=== PATIENT | male | born 1970 | race Caucasian/White ===

== ENCOUNTER → 2021-06-08 14:26 | Outpatient (BNVA) | payer OTHER, SELFPAY | PROVIDERS: PCP Nurse Practitioner Family; Visit Provider Nurse Practitioner Family | DX: R06.02 Shortness of breath (principal); Z13.6 Encounter for screening for cardiovascular disorders; I10 Essential (primary) hypertension; Z79.899 Other long term (current) drug therapy; J22 Unspecified acute lower respiratory infection; K21.9 Gastro-esophageal reflux disease without esophagitis | CPT/HCPCS: 71046; 80053; 80061; 81003; 82306; 83036; 84439; 84443; 85025 ==

== ENCOUNTER → 2021-06-18 13:38 | Outpatient (BNVA) | payer OTHER, SELFPAY | PROVIDERS: PCP Nurse Practitioner Family; Visit Provider Nurse Practitioner Family | DX: R74.8 Abnormal levels of other serum enzymes (principal); K21.9 Gastro-esophageal reflux disease without esophagitis; Z13.6 Encounter for screening for cardiovascular disorders; Z79.899 Other long term (current) drug therapy; I10 Essential (primary) hypertension | CPT/HCPCS: 82728; 83516; 85651; 86160; 86162; 86235; 86255; 86376; 86705; 86706; 86709; 86803; 87340; 87806 ==

== ENCOUNTER 2021-07-03 10:55 | Outpatient (CLI) | payer OTHER, SELFPAY ==
--- NOTE | 2021-07-03 11:06 | US_ITS ---
WS: [id number] Complete ABDOMINAL ULTRASOUND HISTORY: ABNORMAL LEVELS OF OTHER SERUM ENZYMES/ABD PAIN COMPARISON: None available. Liver: 17.1 cm in length. Liver is slightly enlarged. Mild coarsened echotexture throughout the paren chyma. No discrete mass and no bile duct dilatation. Gallbladder: Slightly contracted gallbladder with mild wall thickening. Gallbladder wall measures up to 3 mm. No pericholecystic fluid. No stones identified. Pancreas: Completely obscured by bowel gas. CBD: 0.4 cm. Right kidney: 11.7 cm x 3.9 cm x 5.0 cm. No mass, cortical thickening or hydronephrosis. Left kidney: 11.2 cm x 5.2 cm x 5.6 cm. No mass, cortical thickening or hydronephrosis. Spleen: Normal size spleen with a few granulomata. Abdominal aorta and IVC are within normal limits. No ascites. US/US abdomen complete* [id number] IMPRESSION: 1. Slightly contracted gallbladder and mild wall thickening. No acute cholecys titis. No bile duct dilatation. 2. Liver is top normal size with mild hepatic steatosis. 3. Pancreas is not identified or evaluated.
== END 2021-07-03 10:56 | disposition home or self-care (01) ==
PROVIDERS: PCP Nurse Practitioner Family; Visit Provider Nurse Practitioner Family
DX: R74.8 Abnormal levels of other serum enzymes (principal); R10.9 Unspecified abdominal pain; R06.02 Shortness of breath; K76.0 Fatty (change of) liver, not elsewhere classified
CPT/HCPCS: 76700

== ENCOUNTER → 2021-07-20 10:08 | Outpatient (BNVA) | payer OTHER, SELFPAY | PROVIDERS: PCP Nurse Practitioner Family; Visit Provider Nurse Practitioner Family | DX: R74.8 Abnormal levels of other serum enzymes (principal); D75.1 Secondary polycythemia; R79.89 Other specified abnormal findings of blood chemistry | CPT/HCPCS: 82668; 82728; 83550; 83615; 84466; 85651; 86160; 86162; 86235; 86255; 86376 ==

== ENCOUNTER 2021-07-31 10:48 | Outpatient (CLI) | payer OTHER, SELFPAY ==
--- NOTE | 2021-07-31 11:00 | CT_ITS ---
WS: [id number] CTA scan of the chest. Additional two-dimensional coronal and sagittal reconstruction was performed. MIP images were also performed. 07/31/2021 Clinical Data: R04.2 - Hemoptysis Comparison: CT chest abdomen and pelvis, 07/11/2015. DLP: 1532.[address] scans at [facility] use at least one of these dose optimization techniques: automated e xposure control; mA and/or kV adjustment per patient size (includes targeted exams where dose is matc hed to clinical indication); or iterative reconstruction. Findings: The pulmonary arteries both centrally and distally show no intraluminal filling defects. No nodules, masses or effusions are seen. No pneumonia or pneumothorax is present. The heart is normal. The pulmo nary artery is normal in size. The thoracic aorta is unremarkable. The trachea bifurcates into the br onchi. There are lymph nodes in the anterior mediastinum and the middle mediastinum. The largest node is 1.2 cm. No axillary nodes are seen. The thyroid shows normal enhancement. 2Bones of the thorax ar e unremarkable. The upper abdomen demonstrates no abnormalities. The visualized liver, gallbladder, spleen, pancreas, adrenal glands and superior poles of the kidneys are not remarkable. CT/CT angio chest [id number] Impression: 1. Negative CTA of the chest with no evidence of pulmonary embolic disease. 2. Negative for acute cardiopulmonary disease.
[2021-07-31] MEDS: iohexol 350 mg/mL 100 mL Btl IV (11:48)
== END 2021-07-31 10:49 | disposition home or self-care (01) ==
PROVIDERS: PCP Nurse Practitioner Family; Visit Provider Family Medicine
DX: R04.2 Hemoptysis (principal); R05.9 Cough, unspecified; F17.210 Nicotine dependence, cigarettes, uncomplicated; R63.4 Abnormal weight loss
CPT/HCPCS: 71275; Q9967

== ENCOUNTER 2021-09-21 14:12 | Outpatient (CLI) | payer OTHER, SELFPAY ==
[2021-09-21 17:00] LABS: Basophils # 0.1 10^3/uL (0.0-0.1); Basophils % 0.8 %; Eosinophils # 0.2 10^3/uL (0.0-0.8); Hematocrit 47.1 % (42.0-52.0); Hemoglobin 16.4 g/dL (11.7-16.6); Lymphocytes # 2.9 10^3/uL (0.8-4.8); Lymphocytes % 38.9 %; Mean Corpuscular HGB Conc 34.8 g/dL (30.0-36.0); Mean Corpuscular Hemoglobin 32.9 pg (28.0-34.0); Mean Corpuscular Volume 94.6 fl (80-94); Mean Platelet Volume 11.5 fL (7.4-10.4); Monocytes # 0.7 10^3/uL (0.2-0.9); Monocytes % 8.7 %; Neutrophils # 3.68 10^3/uL (1.8-7.7); Neutrophils % 49.3 %; Nucleated Red Blood Cells % 0 %; Platelet Count 182 10^3/cmm (130-400); Red Blood Count 4.98 10^6/uL (4.1-5.3); White Blood Count 7.5 10^3/uL (4.0-10.0)
[2021-09-21 17:27] LABS: Alanine Aminotransferase 258 U/L (0-41); Albumin Level 4.4 g/dL (3.5-5.2); Alkaline Phosphatase 114 IU/L (40-130); Anion Gap 20.1 (5-19); Aspartate Amino Transferase 182 U/L (0-40); Blood Urea Nitrogen 4 mg/dL (6-20); Calcium 8.4 mg/dL (8.5-10.5); Carbon Dioxide 18 mmol/L (22-29); Chloride 106 mmol/L (98-107); Globulin 3.1 g/dL (1.3-4.6); Glomerular Filtration Rate 142.6 mL/min (90-130); Glucose 83 mg/dL (65-115); Iron 148 ug/dL (59-158); Osmolality Calculated 286 mOsm/kg (285-295); Percent Saturation 40.6 % (20-50); Potassium 4.1 mmol/L (3.5-5.1); Sodium 140 mmol/L (136-145); Total Bilirubin 0.4 mg/dL (0.15-1.2); Total Iron Binding Capacity 364 mcg/dl; Total Protein 7.5 g/dL (6.6-8.7); Unsaturated Iron Binding 216 ug/dL (112-347)
[2021-09-21 17:40] LABS: Ferritin 1221 ng/mL (30-400)
--- NOTE | 2021-09-21 19:51 | ONC CON_ITS ---
Dr. Garcia New Patient Note Patient: Brent Hernández Unit #: [id number]: 1970 Dicatated By: Pramod Garcia M.D.Date of Visit: Sep 21, 2021 Onc MED New Patient/Consult Referring Physician: Cale Perez Chief Complaint: Elevated blood count and elevated ferritin level. History of Present Illness: This is a 51-year-old man with mildly elevated hemoglobin/hematocrit levels and a significantly elevated serum ferritin. He is known to have hypertension, hyperlipidemia, and COPD. He has been going to the [facility] for primary care. He was seen there by ERNESTO lzu on 06/08/2021. His laboratory studies at that time included CBC showing hemoglobin elevated at 17.6 g with hematocrit 50.9%. The white blood cell count was normal at 9600 and the platelet count was normal 199,000. Comprehensive metabolic profile showed normal BUN and creatinine at 7 and 0.6 mg/dL. Bilirubin was normal at 0.7 mg/dL. The liver enzymes, though, were significantly elevated with SGOT 262/40 U/L and SGPT 297/41 U/L. The alkaline phosphatase was slightly elevated at 134/130 IU/L. His lipid profile showed total cholesterol elevated at 309 mg/dL with HDL 33 mg/dL and calculated LDL 239 mg/dL. Thyroid profile was normal. Additional studies on 06/18/2021 included serum ferritin which was significantly elevated 1368 ng/mL. Viral hepatitis screen was negative. He was then seen by Dr. Zamora on 07/13/2021 and his further laboratory studies on 07/20/2021 included serum iron studies which showed serum iron in the normal range at 121 mcg/dL with transferrin saturation also normal at 38.1%. The serum ferritin was significantly elevated at 1532 ng/mL. LDH was normal 164 U/L. Sed rate was normal at 6 mm/h. The erythropoietin level was in the low normal range at 7.9 mIU/mL. In the meantime, an abdominal ultrasound on 07/03/2021 showed slightly contracted gallbladder with mild wall thickening, but no evidence of acute cholecystitis and no evidence of bile duct dilatation. The liver was top normal size with mild hepatic steatosis. CT pulmonary angiogram on 07/31/2021 showed no evidence of pulmonary embolism. There was no evidence for any acute cardiopulmonary disease. Lymph nodes were noted in the anterior mediastinum in the middle mediastinum, the largest measuring 1.2 cm. The upper abdomen showed no abnormalities. He complains that he has hardly any energy. He is able to do a few chores at home. ECOG score is 1. He has not had good appetite. Somewhere around 7 to 8 months ago began having postprandial regurgitation. It has improved somewhat since then, but he has had a weight loss in the range of 35 to 40 pounds. He does not have fever or night sweats. He is not having difficulty swallowing. He has shortness of breath, and he has a smoker's cough. He has been having pain in the mid chest area. It radiates through to the back and also radiates up to his shoulders. It occurs both with activity and at rest. He reports having some acid reflux and he has been having loose stools, typically 3-4 times a day. He occasionally has red blood in the stool. He has urinary frequency and nocturia. He has joint pain in his shoulders and arms and he has pain that goes down both legs. He says his back hurts all the time. He has headaches that he sometimes has dizziness. He has numbness in his hands intermittently. Past Medical History: His medical history consists of chronic obstructive pulmonary disease, elevated liver enzymes, GERD, hyperlipidemia, and hypertension. He has a history of depression. Past Surgical History: His only surgery was a left orchiectomy for traumatic injury at age 19. Medications: Albuterol Sulfate (sensor) 1 Puff(s) (of 108 (90 base) mcg/act) Aerosol Powder, Breath Activated Inhalation q 6 hours PRN, cloNIDine HCl 1 Tablet (of 0.1 mg) Oral b.i.d., Symbicort 2 Puff(s) (of 160-4.5 mcg/act) Aerosol Inhalation PRN Allergies: Lidocaine Social History: Mr. Hernández is . 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 He has a history of smoking 2 packs of cigarettes daily for 30 years. He is a heavy drinker with estimated alcohol use of 15-20 beers per day. Family History: Father of pancreatic cancer. Mother is living at age 73. She has diabetes and coronary artery disease. One brother of a cerebral aneurysm. Four other brothers and 2 sisters are still living, but he does not know much about them. Review Of Symptoms: Constitutional - He says he has hardly any energy. He is able to do a few chores around the house. His appetite has not been good. He has had a weight loss in the range of 35 to 40 pounds. He has no fever or night sweats. ECOG score is 1, Eyes - He has had gradual decline in vision, ENMT - He has some hearing loss and tinnitus. He has sinus drainage off and on. No mouth sores. No sore throat or difficulty swallowing, Hematologic/Lymphatic - He has had some bruising. No other bleeding, Respiratory - He has shortness of breath. He has a smoker's cough. No pleuritic pain or hemoptysis, Cardiovascular - He has been having pain in his chest which radiates through to the middle of his back and also to his shoulders. It occurs both with half activity and with rest, Gastrointestinal - He has been having postprandial regurgitation, though lately it has not been as bad. He has had some acid reflux. He has loose stools, typically 3-4 times a day. He occasionally has red blood in the stool, Genitourinary (M) - No dysuria or hematuria. He has urinary frequency and nocturia. No urgency or incontinence, Musculoskeletal - He has pain in his shoulders and arms and he has pain which goes down his legs. He says his back hurts all the time, Neurologic - He has headaches and he sometimes has dizziness. He has numbness in his hands intermittently. No other focal neurologic symptoms, Psychiatric - He has some anxiety. He has a history of depression. He does not sleep well. Vital Signs: Performed on Sep 21, 2021 15:25: 5, 2, 26.49, 1.97 sq.m, 69 in, 97 %, 91 /min, 18 /min, 176/117 mm(hg) (HIGH), 99.3 F (HIGH), and 179.4 lbs (HIGH). Physical Examination: Constitutional - He appears chronically ill, Eyes - Sclerae nonicteric. Conjunctivae clear, ENMT - No lesions noted in the oral cavity, Neck - No mass or thyromegaly, Hematologic/Lymphatic - No cervical, clavicular, or axillary adenopathy, Respiratory - Lungs sound clear with diminished air movement bilaterally, Cardiovascular - Heart rhythm is regular. There is no murmur, gallop, or rub noted, Abdomen - Soft. There is significant tenderness in the right upper quadrant. Liver does not appear enlarged. The spleen is not palpable. There is no abdominal mass or ascites noted and there is no inguinal adenopathy, Back/Spine - No spine or CVA tenderness noted, Extremities - No edema. Posterior tibial pulses are palpable bilaterally, Integumentary - No rashes. No suspicious skin lesions noted, Neurologic - No focal neurologic deficits noted. Problem List: 1. Mildly elevated hemoglobin/hematocrit levels, most likely due to secondary polycythemia. 2. Elevated serum ferritin. 3. He has significantly elevated liver enzymes. 4. Postprandial vomiting with associated weight loss. 5. Hypertension. 6. Hyperlipidemia. 7. COPD. 8. GERD. Problems Addressed with this Encounter and Plan: 1. Patient with mildly elevated hemoglobin/hematocrit levels. 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 Polycythemia rubra vera at this point is not excluded, and he will need additional laboratory evaluation including a repeat CBC and a JAK2 gene mutation study. 2. He has a significantly elevated serum ferritin but with normal transferrin saturation. The cause is uncertain. It may just be elevated as an acute phase reactant in association with the transaminitis, but hemochromatosis/iron overload is definitely a possibility. As such, I will repeat a CMP and I will recheck his serum ferritin and serum iron studies along with an HFE gene analysis. He will have further evaluation as indicated. 3. He has significant transaminitis. I think this is most likely alcohol related, but iron overload also needs to be excluded. In either case, he needs to stop drinking, though he certainly does not seem very motivated to do so. 4. He has been having postprandial regurgitation and he has had associated weight loss. In addition, he has been having loose stools, and at some point he probably should have both EGD and colonoscopy. 5. He has significant hyperlipidemia. He also has hypertension and chest pain, and he appears to be at significant risk for coronary disease. Signed By: Pramod Garcia M.D. <<Signature on File>>
[2021-10-05 14:26] LABS: CALR Exon 9 Mutation NOT DETECTED (NOT DETECTED); CSF3R Exon 14/17 Mutation NOT DETECTED (NOT DETECTED); JAK2 Exon 12 Mutation NOT DETECTED (NOT DETECTED); JAK2 V617 Block Specimen ID NG; JAK2 V617 Clinical Indication NG; JAK2 V617 Mutation NOT DETECTED (NOT DETECTED); JAK2 V617 Specimen Source LAVENDER; MPL Exon 12 Mutation NOT DETECTED (NOT DETECTED)
== END 2021-09-21 14:13 | disposition home or self-care (01) ==
LOC: ONCMED 14:18
PROVIDERS: PCP Nurse Practitioner Family; Visit Provider Internal Medicine Medical Oncology
DX: D75.1 Secondary polycythemia (principal); R74.8 Abnormal levels of other serum enzymes; R11.10 Vomiting, unspecified; R63.4 Abnormal weight loss; I10 Essential (primary) hypertension; E78.5 Hyperlipidemia, unspecified; J44.9 Chronic obstructive pulmonary disease, unspecified; K21.9 Gastro-esophageal reflux disease without esophagitis; Z79.899 Other long term (current) drug therapy
CPT/HCPCS: 36415; 80053; 81256; 81270; 82728; 83540; 83550; 85025; 99205

== ENCOUNTER 2021-11-05 10:19 | Outpatient (CLI) | payer SELFPAY ==
--- NOTE | 2021-11-08 11:04 | ONC FU_ITS ---
Dr. Garcia Patient Follow-Up Note Patient: Brent Hernández Unit #: [id number]: 1970 Dicatated By: Pramod Garcia M.D.Date of Visit:Nov 05, 2021 Onc Med Follow-up/Prog Note Chief Complaint: Elevated blood count and elevated ferritin level. History of Present Illness: This is a 51-year-old man with mildly elevated hemoglobin/hematocrit levels and a significantly elevated serum ferritin. He was seen by ERNESTO Del Valle at [facility] on 06/08/2021. His laboratory studies at that time included CBC showing hemoglobin elevated at 17.6 g with hematocrit 50.9%. The white blood cell count was normal at 9600 and the platelet count was normal 199,000. Comprehensive metabolic profile showed normal BUN and creatinine at 7 and 0.6 mg/dL. Bilirubin was normal at 0.7 mg/dL. The liver enzymes, though, were significantly elevated with SGOT 262/40 U/L and SGPT 297/41 U/L. The alkaline phosphatase was slightly elevated at 134/130 IU/L. His lipid profile showed total cholesterol elevated at 309 mg/dL with HDL 33 mg/dL and calculated LDL 239 mg/dL. Thyroid profile was normal. Additional studies on 06/18/2021 included serum ferritin which was significantly elevated 1368 ng/mL. Viral hepatitis screen was negative. He was then seen by Dr. Perez on 07/13/2021 and his further laboratory studies on 07/20/2021 included serum iron studies which showed serum iron in the normal range at 121 mcg/dL with transferrin saturation also normal at 38.1%. The serum ferritin was significantly elevated at 1532 ng/mL. LDH was normal 164 U/L. Sed rate was normal at 6 mm/h. The erythropoietin level was in the low normal range at 7.9 mIU/mL. In the meantime, an abdominal ultrasound on 07/03/2021 showed slightly contracted gallbladder with mild wall thickening, but no evidence of acute cholecystitis and no evidence of bile duct dilatation. The liver was top normal size with mild hepatic steatosis. CT pulmonary angiogram on 07/31/2021 showed no evidence of pulmonary embolism. There was no evidence for any acute cardiopulmonary disease. Lymph nodes were noted in the anterior mediastinum in the middle mediastinum, the largest measuring 1.2 cm. The upper abdomen showed no abnormalities. I had seen him initially on September 21, 2021. It appeared that the elevated hemoglobin/hematocrit levels were most likely reflective of secondary polycythemia, though as a precaution I did evaluate further with a molecular profile. It was completely negative, including the JAK2 V617F and the JAK2 exon 12 mutations, among others. With his ferritin level significantly elevated, his evaluation also included an HFE gene analysis, and that was negative for the C282Y and the H63D mutations. His other medical illnesses include hypertension, hyperlipidemia, and COPD. He has a history of smoking 2 packs of cigarettes daily for 30 years. He also has had significant alcohol use, estimated 15-20 beers daily. He is seen for a follow-up visit. He says he has been feeling okay, though he has been tired a lot and he says he has been doing a lot of sleeping. He has very limited activity. ECOG score is 2. His appetite has not been good. He says he does not eat a lot. He does not have fever. He sometimes has sweating at night. He says he has been itching a lot. His blood pressure has been elevated. He has not been taking medication, mainly because he cannot afford to pay for it. His sinuses have been rough lately. He has cough which is productive of clear or sometimes green sputum. It occasionally has blood in it, but he thinks that is from his sinuses. He is short of breath. During the past week he has been having pain in the substernal area which comes and goes. He has not been having nausea. He sometimes has acid reflux. His bowels have been loose. Bladder function is pretty good, though he says his urine has been a little more dark. He has been having really bad pain in his hips and thighs. He also hurts in his shoulders and elbows and he has back pain all the time. He has had some headaches. Occasionally has dizziness. He has numbness in his hands and feet and in his right leg. He reports having frequent muscle cramping in both feet. Since my initial visit with him he has cut down his smoking to 1 pack of cigarettes daily, and he has reduced his alcohol intake to 6 beers daily. Medications: Albuterol Sulfate (sensor) 1 Puff(s) (of 108 (90 base) mcg/act) Aerosol Powder, Breath Activated Inhalation q 6 hours PRN, Budesonide-Formoterol Fumarate 1 Puff(s) (of 160-4.5 mcg/act) Aerosol Inhalation b.i.d., Lisinopril 1 Tablet (of 10 mg) Oral daily Allergies: Lidocaine Vital Signs: Performed on Nov 05, 2021 11:09 Height - 69.00 in BP - 216/133 mm(hg) (HIGH) Performed on Nov 05, 2021 11:08 Height - 69.00 in Weight - 185.4 lbs (HIGH) BSA - 2.00 sq.m BMI - 27.38 Temperature - 98.3 F (LOW) Pulse - 89 /min Respiration - 16 /min BP - 213/138 mm(hg) (HIGH) O2 Sat - 99 % Pain - 2 Fatigue - 8 Physical Examination: Constitutional - He appears chronically ill, Eyes - Sclerae nonicteric. Conjunctivae clear, ENMT - No lesions noted in the oral cavity, Hematologic/Lymphatic - No cervical, clavicular, or axillary adenopathy, Respiratory - Lungs sound clear with diminished air movement bilaterally, Cardiovascular - Heart rhythm is regular. There is no murmur, gallop, or rub noted, Abdomen - Soft. He has mild tenderness in the right upper quadrant. Liver does not appear enlarged. Spleen is not palpable. There is no abdominal mass or ascites noted and there is no inguinal adenopathy, Extremities - No edema, Neurologic - No focal neurologic deficits noted. Lab/Imaging: Test performed on Sep 21, 2021 16:30 Ferritin 1221 ng/mL Iron 148 mcg/dL Sodium 140 mmol/L Iron Binding Capacity (TIBC) 364 mcg/dl Potassium 4.1 mmol/L % Iron Saturation 40.6 % Chloride 106 mmol/L CO2 18 mmol/L UIBC 216 mcg/dL Anion Gap 20.1 BUN 4 mg/dL Creatinine 0.6 mg/dL Cr Clearance (Est) 169.5300 mL/min eGFR 142.6 mL/min Glucose 83 mg/dL Osmolality - Calculated 286 mOsm/kg Calcium 8.4 mg/dL Protein, Total 7.5 g/dL Albumin 4.4 g/dL Globulin 3.1 g/dL Bilirubin, Total 0.4 mg/dL ALT (SGPT) 258 U/L AST (SGOT) 182 U/L Alkaline Phosphatase 114 IU/L WBC 7.5 10 3/uL RBC 4.98 10 6/uL HGB 16.4 g/dL HCT 47.1 % MCV 94.6 fl MCH 32.9 pg MCHC 34.8 g/dL RDW 13.0 % Platelet Count 182 10 3/cmm MPV 11.5 fL Neutrophils 3.68 10 3/uL Lymphocytes 2.9 10 3/uL Monocytes 0.7 10 3/uL Eosinophils 0.2 10 3/uL Basophils 0.1 10 3/uL Neutrophil % 49.3 % Lymphocyte % 38.9 % Monocyte % 8.7 % Eosinophil % 2.0 % Basophils % 0.8 % NRBC % 0 % Problem List: 1. Mildly elevated hemoglobin/hematocrit levels, most likely due to secondary polycythemia. 2. Elevated serum ferritin. 3. He has significantly elevated liver enzymes. 4. Postprandial vomiting with associated weight loss. 5. Hypertension. 6. Hyperlipidemia. 7. COPD. 8. GERD. Problems Addressed with this Encounter and Plan: 1. Patient with mildly elevated hemoglobin/hematocrit levels. 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 His molecular profile for myeloproliferative disorders was negative. With his hemoglobin/hematocrit levels just mildly elevated, this can be followed expectantly. 2. He has a significantly elevated serum ferritin. This appears to be nonspecific elevation as an acute phase reactant, as he has had normal transferrin saturation and his HFE gene analysis was negative for the C282Y and the H63D mutations. The most likely underlying source would be liver disease, as he has significant transaminitis which is presumed alcohol related. He has cut down on his alcohol intake. 3. He has hypertension which is not adequately controlled due to noncompliance. He also has hyperlipidemia, which has not yet been addressed. At least for now he will be given lisinopril 10 mg daily for 90 days. I asked him to get his blood pressure checked at least once a week. 4. He has COPD and he also will be provided a budesonide-formoterol fumarate inhaler. Signed By: Pramod Garcia M.D. <<Signature on File>>
== END 2021-11-05 10:20 | disposition home or self-care (01) ==
PROVIDERS: PCP Nurse Practitioner Family; Visit Provider Internal Medicine Medical Oncology
DX: D75.1 Secondary polycythemia (principal); R79.89 Other specified abnormal findings of blood chemistry; R74.8 Abnormal levels of other serum enzymes; R11.10 Vomiting, unspecified; R63.4 Abnormal weight loss; I10 Essential (primary) hypertension; E78.5 Hyperlipidemia, unspecified; J44.9 Chronic obstructive pulmonary disease, unspecified; K21.9 Gastro-esophageal reflux disease without esophagitis; Z79.899 Other long term (current) drug therapy
CPT/HCPCS: 99214

== ENCOUNTER 2021-12-04 11:18 | Day surgery (SDC) | payer MEDICAID, SELFPAY ==
[2021-12-04] VITALS (7 sets, daily range): BP systolic 131–209; BP diastolic 94–127; PULSE 71–80; RESP 14–18; TEMP 37; O2SAT 97–100
--- NOTE | 2021-12-04 11:47 | US_ITS ---
WS: [id number] ULTRASOUND-GUIDED LIVER PARENCHYMA BIOPSY CLINICAL INFORMATION: elevated liver enzymes COMPARISON: None. FINDINGS: The procedure including risks, benefits, and complications were discussed with the patient who agreed to proceed. Using sterile technique patient was prepped and draped in the usual sterile fashion. Aft er 1% lidocaine utilizing real-time ultrasound guidance 6 18-gauge cores were obtained of the LEFT he patic lobe. No immediate complications. US/US biopsy liver [id number] IMPRESSION: 1. Uncomplicated ultrasound-guided liver parenchyma biopsy 2. Pathology is pending.
[2021-12-04] MEDS: sodium chloride 0.9% 1,000 ML 30 ML IV (12:00)
[2021-12-04 12:21] LABS: INR 0.99 (0.8-1.2)
[2021-12-04] MEDS: fentaNYL 50 mcg/mL INJ 2mL IVP (13:13)
[2021-12-04] MEDS: midazolam 1 mg/mL INJ 2 mL 2 MG IVP (13:13)
[2021-12-04] MEDS: fentaNYL 50 mcg/mL INJ 2mL 25 MCG IVP ×2 (13:22→13:28)
[2021-12-04] MEDS: midazolam 1 mg/mL INJ 2 mL IVP ×2 (13:22→13:28)
== END 2021-12-04 14:55 | disposition home or self-care (01) ==
PROVIDERS: PCP Nurse Practitioner Family; Visit Provider Radiology Neuroradiology
DX: R94.5 Abnormal results of liver function studies (principal)
CPT/HCPCS: 36415; 47000; 76942; 85610; 88307; 96367; 96374; J2250; J2400; J3010; J7030

== ENCOUNTER 2022-03-08 12:55 | Inpatient (IN) | payer MEDICAID, SELFPAY ==
[2022-03-08] VITALS (21 sets, daily range): BP systolic 135–221; BP diastolic 78–144; PULSE 70–101; RESP 9–23; TEMP 36.2; O2SAT 90–97; BMI 23.7
--- NOTE | 2022-03-08 13:09 | XR_ITS ---
WS: [id number] Exam: XR chest 1V portable [id number] Date/Time of Exam: 03/08/2022 1:15 PM Reason For Exam: chest pain Comparison 06/08/2021. Findings: The lungs are clear and fully expanded. Costophrenic angles are sharp. No infiltrates. Bronchovascula r relief appears normal. Cardiac silhouette is unremarkable. Bony elements are intact. XR/XR chest 1V portable [id number] IMPRESSION: Unremarkable chest radiograph.
--- NOTE | 2022-03-08 13:09 | ECG_ITS ---
[facility] Test Date: 2022-03-08 Pat Name: Brent Hernández Department: Room: Gender: Male Rn Infusion: : 1970 Requested By: Toi Gill Order Number: [id number] Brock MD: Sharon Noland M.D. Measurements Intervals Snyder Rate: 91 P: 70 ND: 152 QRS: 58 QRSD: 90 T: 50 QT: 353 QTc: 436 Interpretive Statements SINUS RHYTHM Compared to ECG 12/08/2015 17:37:21 No significant changes Electronically Signed On 03-08-2022 21:21:15 CDT by Sharon Noland M.D. [id number]
[2022-03-08 13:20] LABS: Basophils # 0.1 10^3/uL (0.0-0.1); Basophils % 0.9 %; Eosinophils # 0.1 10^3/uL (0.0-0.8); Eosinophils % 0.8 %; Hematocrit 48.8 % (42.0-52.0); Hemoglobin 17.3 g/dL (11.7-16.6); Lymphocytes # 2.1 10^3/uL (0.8-4.8); Lymphocytes % 23.8 %; Mean Corpuscular HGB Conc 35.5 g/dL (30.0-36.0); Mean Corpuscular Hemoglobin 32.3 pg (28.0-34.0); Mean Platelet Volume 10.9 fL (7.4-10.4); Monocytes # 0.6 10^3/uL (0.2-0.9); Monocytes % 6.8 %; Neutrophils # 5.93 10^3/uL (1.8-7.7); Neutrophils % 67.2 %; Nucleated Red Blood Cells % 0 %; Platelet Count 188 10^3/cmm (130-400); Red Blood Count 5.36 10^6/uL (4.1-5.3); Red Cell Distribution Width 13.3 % (12.1-15.1); White Blood Count 8.8 10^3/uL (4.0-10.0)
--- NOTE | 2022-03-08 13:27 | W.ED.CHESTPA ---
HPI - Chest Pain General: Chief Complaint: Chest Pain Stated Complaint: HTN Time Seen by Provider: 03/08/22 13:09 Source: patient Mode of arrival: EMS Limitations: no limitations History of Present Illness: 51-year-old male presents emergency room complaining of chest pain for the last several weeks been escalating in intensity and duration. He has had episode of chest pain while at rest today. He does admit to drinking regularly. Chest pain was relieved by nitroglycerin in route and then worsening of her arrival here follow-up. Denies any medic easy melena hematemesis cough confirms no known history of coronary artery disease he is not diabetic but he does smoke regularly. Has a history of pretension is not currently treated. MD complaint: chest pain Onset (ago): hour(s) Timing of current episode: episodic Prior episodes: Yes Onset: during rest Pain location: left chest Severity: moderate Quality: tightness, aching and heaviness Relieving factors: nitroglycerin Exacerbating factors: nothing Associated symptoms: Reports diaphoresis and dyspnea; Deny abdominal pain, fever(s), leg edema, nausea, palpitations, sense of impending doom, syncope or vomiting Treatment prior to arrival: aspirin and nitroglycerin Review of Systems Const: Reports: diaphoresis; Denies: fever(s) ENMT: Denies: throat pain, ear or mastoid pain, nasal discharge or nasal congestion Card: Reports: chest pain; Denies: palpitations, irregular heart rhythm, edema, swelling of feet/ankles or syncope Resp: Reports: dyspnea GI: Denies: abdominal pain, nausea or vomiting : Denies: flank pain, difficulty urinating, dysuria, urinary frequency or urinary urgency Skin/Breast: Denies: rash or pruritus PFSH ED PFSH: Medical History Elevated liver enzymes Essential hypertension GERD (gastroesophageal reflux disease) Hypertension screen Lower respiratory infection Medication management Shortness of Breath Surgical History H/O removal of testicle At age 20 - 21 Social History Smoking and tobacco status: current every day smoker Physical Exam Const: COMMON NORMALS: no acute distress GENERAL APPEARANCE: cooperative and comfortable ORIENTATION/CONSCIOUSNESS: Yes awake, Yes oriented to person, Yes oriented to place and Yes oriented to time HENMT: COMMON NORMALS: normocephalic, atraumatic and hearing grossly normal bilaterally HEAD & SCALP: normocephalic and atraumatic Resp: COMMON NORMALS: normal respiratory effort, No retractions, No use of accessory muscles and clear to auscultation bilaterally AUSCULTATION: clear to auscultation bilaterally Cardio: COMMON NORMALS: regular rate, regular rhythm and No murmurs present (Cardio) RATE: regular rate RHYTHM: regular rhythm GI: COMMON NORMALS: Soft to palpation and No hepatosplenomegaly present AUSCULTATION: Yes normoactive bowel sounds PALPATION: Yes Soft to palpation, No Tenderness to palpation present (GI), No Guarding due to palpation present (GI) and Yes No hepatosplenomegaly present Extremity: COMMON NORMALS: normal to inspection, capillary refill normal, no clubbing, cyanosis or edema, no calf tenderness and no pedal edema Neuro: SENSORIUM/ORIENTATION: Yes oriented to person, Yes oriented to place and Yes oriented to time Skin: COMMON NORMALS: no rashes or lesions noted GENERAL SKIN EXAM: no rashes or lesions noted Course Vital Signs: Vital signs: Vital Signs Temperature 97.1 F L 03/08/22 13:01 Pulse Rate 77 03/08/22 17:00 Respiratory Rate 18 03/08/22 17:00 Blood Pressure 146/109 03/08/22 17:00 Pulse Oximetry 94 03/08/22 17:00 MDM - Chest Pain Medical Decision Making Escalating chest pain concern for cord artery disease. Will admit and evaluate for coronary artery disease discussed with hospitalist cardiology consulted. Lab Data : 03/08/22 13:10 03/08/22 13:10 Radiology Impressions Chest X-Ray 03/08/22 13:09 IMPRESSION: Unremarkable chest radiograph. Laboratory Results WBC 8.8 10^3/uL (4.0-10.0) 03/08/22 13:10 RBC 5.36 10^6/uL (4.1-5.3) H 03/08/22 13:10 Hgb 17.3 g/dL (11.7-16.6) H 03/08/22 13:10 Hct 48.8 % (42.0-52.0) 03/08/22 13:10 MCV 91.0 fl (80-94) 03/08/22 13:10 MCH 32.3 pg (28.0-34.0) 03/08/22 13:10 MCHC 35.5 g/dL (30.0-36.0) 03/08/22 13:10 RDW 13.3 % (12.1-15.1) 03/08/22 13:10 Plt Count 188 10^3/cmm (130-400) 03/08/22 13:10 MPV 10.9 fL (7.4-10.4) H 03/08/22 13:10 Neut % (Auto) 67.2 % 03/08/22 13:10 Lymph % (Auto) 23.8 % 03/08/22 13:10 [place] % (Auto) 6.8 % 03/08/22 13:10 Eos % (Auto) 0.8 % 03/08/22 13:10 Baso % (Auto) 0.9 % 03/08/22 13:10 Neut # (Auto) 5.93 10^3/uL (1.8-7.7) 03/08/22 13:10 Lymph # (Auto) 2.1 10^3/uL (0.8-4.8) 03/08/22 13:10 [place] # (Auto) 0.6 10^3/uL (0.2-0.9) 03/08/22 13:10 Eos # (Auto) 0.1 10^3/uL (0.0-0.8) 03/08/22 13:10 Baso # (Auto) 0.1 10^3/uL (0.0-0.1) 03/08/22 13:10 Nucleated RBC % (auto) 0 % 03/08/22 13:10 Nucleated RBCs # 0.0 /100WBC 03/08/22 13:10 Sodium 139 mmol/L (136-145) 03/08/22 13:10 Potassium 4.4 mmol/L (3.5-5.1) 03/08/22 13:10 Chloride 102 mmol/L (98-107) 03/08/22 13:10 Carbon Dioxide 25 mmol/L (22-29) 03/08/22 13:10 Anion Gap 16.4 (5-19) 03/08/22 13:10 BUN 7 mg/dL (6-20) 03/08/22 13:10 Creatinine 0.7 mg/dL (0.7-1.2) 03/08/22 13:10 GFR Calculation 119.4 mL/min (90-130) 03/08/22 13:10 Glucose 109 mg/dL (65-115) 03/08/22 13:10 Estimat Average Glucose 105 03/08/22 13:10 Hemoglobin A1c 5.3 % (4.0-6.0) 03/08/22 13:10 Calculated Osmolality 287 mOsm/kg (285-295) 03/08/22 13:10 Calcium 9.8 mg/dL (8.5-10.5) 03/08/22 13:10 Total Bilirubin 0.3 mg/dL (0.15-1.2) 03/08/22 13:10 AST 66 U/L (0-40) H 03/08/22 13:10 ALT 82 U/L (0-41) H 03/08/22 13:10 Alkaline Phosphatase 136 IU/L (40-130) H 03/08/22 13:10 Troponin T Baseline 6 ng/L (0-15) 03/08/22 13:10 NT-Pro-B Natriuret Pep 106 pg/mL (0-125) 03/08/22 13:10 Total Protein 8.0 g/dL (6.6-8.7) 03/08/22 13:10 Albumin 4.9 g/dL (3.5-5.2) 03/08/22 13:10 Globulin 3.1 g/dL (1.3-4.6) 03/08/22 13:10 Triglycerides 137 mg/dL (0-150) 03/08/22 13:10 Cholesterol 301 mg/dL (0-200) H 03/08/22 13:10 LDL Cholesterol, Calc 231 mg/dL (50-129) H 03/08/22 13:10 HDL Cholesterol 43 mg/dL (60-100) L 03/08/22 13:10 LDL/HDL Ratio 5.37 RATIO (0.00-3.22) H 03/08/22 13:10 Cholesterol/HDL Ratio 7.00 mg/dL (1.0-5.00) H 03/08/22 13:10 Procalcitonin 0.06 ng/mL (0-0.5) 03/08/22 13:10 TSH 1.10 uIU/mL (0.27-4.20) 03/08/22 13:10 Discharge Plan Discharge Patient Disposition: Admitted As Inpatient Admit Provider: Blanquita Carreno Clinical Impression: Unstable angina, Alcohol use Condition: Stable Coding Level of Care Code ED Computer Discovery Teacher for Chg Fwd Exam Detailed
[2022-03-08 13:47] LABS: Alanine Aminotransferase 82 U/L (0-41); Albumin Level 4.9 g/dL (3.5-5.2); Alkaline Phosphatase 136 IU/L (40-130); Aspartate Amino Transferase 66 U/L (0-40); Blood Urea Nitrogen 7 mg/dL (6-20); Calcium 9.8 mg/dL (8.5-10.5); Carbon Dioxide 25 mmol/L (22-29); Chloride 102 mmol/L (98-107); Globulin 3.1 g/dL (1.3-4.6); Glomerular Filtration Rate 119.4 mL/min (90-130); Glucose 109 mg/dL (65-115); Osmolality Calculated 287 mOsm/kg (285-295); Sodium 139 mmol/L (136-145); Total Bilirubin 0.3 mg/dL (0.15-1.2)
[2022-03-08 13:51] LABS: Troponin(5th) Baseline 6 ng/L (0-15)
[2022-03-08] MEDS: enoxaparin 80 mg/0.8 mL Syringe SUBCUT ×2 (13:53→20:23)
[2022-03-08] MEDS: nitroglycerin drip 50 MG/250 ML PREMIX IV (13:56)
[2022-03-08 13:57] LABS: Anion Gap 16.4 (5-19); Potassium 4.4 mmol/L (3.5-5.1)
[2022-03-08] MEDS: metoprolol tartrate 1 mg/1 mL SDV 5 mL 5 MG IVP (14:28)
[2022-03-08] MEDS: morphine 4 mg/mL SDV 1 mL 2 MG IVP ×3 (14:34→23:03)
--- NOTE | 2022-03-08 15:08 | P.HP_ITS ---
Providers/Chief Complaint Primary Care Provider: ESTELLE Lynn Chief Complaint: HTN History of Present Illness Brent Hernández is a 51 year old male with past medical history of hypertension hyperlipidemia, COPD, GERD, polycythemia presented to the hospital today with chest pain. He states the chest pain is increasing in intensity and frequency. He was also hypertensive upon arriving to the ER. He received aspirin and nitro in route which relieved the pain. His pain has been going on for the last 4 to 5 months. He says he has these episodes that last few seconds to several minutes and then the pain gradually goes away. Patient's pain also radiates to the back. Both his parents had an NH during their lifetime. Mother had in her 40s and father had it in his 60s. He does drink 6 to 8 packs of alcohol a day and has been drinking for the last 30 years. He also smokes 2 packs of cigarettes for the last 30 years. patient also has elevated liver enzymes. For his polycythemia he has seen Dr. Garcia in the past which was thought to be secondary polycythemia due to underlying COPD. First troponin is 6. Patient has been given therapeutic Lovenox and started on nitro drip by ER. Patient has not have her had a cardiac work-up done before. On albuterol inhaler and Symbicort at home. Lisinopril 10 mg daily. Medications/Allergies Home Medications Medication Instructions Recorded Confirmed Last Taken Type albuterol sulfate 90 mcg/actuation 1 inh INHALATION Q6H PRN #8.5 g 07/13/21 03/08/22 Unknown Rx aerosol inhaler (Ventolin HFA) budesonide-formoterol HFA 160 2 inh INHALATION BID 30 Days #10.2 08/10/21 03/08/22 03/07/22 Rx mcg-4.5 mcg/actuation aerosol g inhaler (Symbicort) tiotropium bromide 1.25 2 puff INHALATION DAILY #4 g 08/10/21 03/08/22 03/07/22 Rx mcg/actuation mist for inhalation (Spiriva Respimat) ibuprofen 200 mg tablet 1,200 mg PO Q6H PRN 11/11/21 03/08/22 12/03/21 History lisinopril 10 mg tablet 10 mg PO DAILY 11/11/21 03/08/22 12/03/21 History Allergies Allergy/AdvReac Type Severity Reaction Status Date / Time lidocaine Allergy Intermediate ALGY-Hives Verified 03/08/22 13:29 PFSH Acute PFSH: Medical History Elevated liver enzymes Essential hypertension GERD (gastroesophageal reflux disease) Hypertension screen Lower respiratory infection Medication management Shortness of Breath Surgical History H/O removal of testicle At age 20 - 21 Social History Smoking and tobacco status: current every day smoker Vitals/I&O/Wt Last Vital Signs Temp 97.1 F L 03/08/22 13:01 Pulse 87 03/08/22 14:41 Resp 18 03/08/22 14:41 BP 182/120 03/08/22 14:41 Pulse Ox 93 03/08/22 14:41 03/08/22 03/08/22 03/08/22 06:59 14:59 22:59 Intake Total 2.55 / 2.55 1.75 / 4.30 Balance 2.55 / 2.55 1.75 / 4.30 Weight last 48 hrs Weight 77.111 kg Physical Exam Narrative: General: Alert oriented x3, patient seen sitting up in bed appearing comfortable. He is on nitro drip at this time. Does endorse having chest pain. HEENT: Normocephalic, atraumatic, EOMI, breathing normally, no acute distress. Cardio: Regular rate rhythm, normal S1-S2, no gross murmurs are evident at this time. Respiratory: Good bilateral air entry, mild rhonchi at bases, GI: Abdomen soft, nontender, nondistended, bowel sounds + Behavior: Appropriate and cooperative Extremities: Trace lower extremity edema bilaterally, no cyanosis Data : 03/09/22 04:55 03/09/22 04:55 A&P Assessment and plan (1) Alcohol withdrawal: Status: Acute (2) COPD (chronic obstructive pulmonary disease): Status: Acute (3) Acquired polycythemia: Status: Acute (4) Elevated liver enzymes: Status: Acute (5) GERD (gastroesophageal reflux disease): Status: Acute (6) Essential hypertension: Status: Acute (7) Chest pain: Status: Acute (8) Hypertensive urgency: Status: Acute Plan #Unstable angina #Hypertensive urgency #Smoker, nicotine dependence #COPD #GERD #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 Check hemoglobin A1c, lipid profile ? Offer nicotine patch ? Start aspirin, loaded with Plavix, therapeutic Lovenox ? Continue on nitro drip ? Check serial troponins ? Initial EKG did not show any ischemic changes so far. EKG was sinus rhythm ? Consult cardiology ? We will check hepatitis panel ? I believe with patient's continued chest pain patient would benefit from an angiogram instead of a stress test. Serial troponins are pending. Will discuss with cardiology for further plan of care. Full code Admit to ICU. Attestations Medical Necessity Statement*: Will need to stay in hospital for work-up and management of chest pain and hypertensive urgency. Expect to cross greater than 48-hour stay. Coding Level of Care Code Acute Cigar Head Stringer for g Fwd Diagnoses Alcohol withdrawal F10.239 COPD (chronic obstructive pulmonary disease) J44.9 Acquired polycythemia D75.1 Elevated liver enzymes R74.8 GERD (gastroesophageal reflux disease) K21.9 Essential hypertension I10 Chest pain R07.9 Hypertensive urgency I16.0
--- NOTE | 2022-03-08 15:09 | ECG_ITS ---
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 Measurements Intervals [place] Rate: 72 P: 74 GA: 146 QRS: 61 QRSD: 92 T: 62 QT: 390 QTc: 427 Interpretive Statements SINUS RHYTHM Compared to ECG 03/08/2022 13:05:58 No significant changes Electronically Signed On 03-08-2022 21:29:16 CDT by Sharon Noland M.D. [id number]
[2022-03-08 15:27] LABS: Troponin 5 2HR 6.45 ng/L (0-15)
[2022-03-08] MEDS: atorvastatin 40 mg Tablet 80 MG PO (15:39)
[2022-03-08] MEDS: pantoprazole 40 mg SDV IVP (15:40)
[2022-03-08] MEDS: clopidogrel 300 mg Tablet PO (15:40)
[2022-03-08 16:21] LABS: NT Pro B Type Natriuretic Pept 106 pg/mL (0-125); Procalcitonin 0.06 ng/mL (0-0.5)
[2022-03-08 16:22] LABS: Cholesterol 301 mg/dL (0-200); HDL Cholesterol 43 mg/dL (60-100); LDL Cholesterol Calculated 231 mg/dL (50-129); LDL HDL Ratio 5.37 RATIO (0.00-3.22); Triglycerides 137 mg/dL (0-150)
[2022-03-08 16:25] LABS: Estmated Average Glucose 105; Hemoglobin A1C 5.3 % (4.0-6.0)
[2022-03-08 16:30] LABS: Troponin 5 2HR Delta 0.45 ABS# (0-10)
--- NOTE | 2022-03-08 16:58 | USCV_ITS ---
Brent Hernández Age: 51 Gender: M : 1970 Exam Date: 03/08/2022 17:12 Ordering Phys: Blanquita Carreno MD Technologist: Obed Luevano Exam Location: [facility] [place] Indication: high blood pressure BP: 146 / 109 HR: 77 Rhythm: Sinus Technical Quality: Adequate MEASUREMENTS (Male / Female) Normal Values 2D ECHO LV Diastolic Diameter PLAX 3.4 cm 4.2 - 5.9 / 3.9 - 5.3 cm LV Systolic Diameter PLAX 2.4 cm IVS Diastolic Thickness 1.0 cm 0.6 - 1.0 / 0.6 - 0.9 cm IVS Systolic Thickness 1.2 cm LVPW Diastolic Thickness 1.2 cm 0.6 - 1.0 / 0.6 - 0.9 cm LVPW Systolic Thickness 1.2 cm LVOT Diameter 2.1 cm LV Ejection Fraction 2D Teich 47.0 % LV Ejection Fraction MOD 2C 67.5 % LV Ejection Fraction 2C AL 68.2 % LA Diameter 3.4 cm Aorta at Sinotubular Diameter 3.2 cm IVC Diameter 1.5 cm M-MODE Aortic Annulus Diameter 3.8 cm LA Ao Ratio MM 0.9 MV E Point Septal Separation 0.9 cm DOPPLER AV Peak Velocity 121.0 cm/s LVOT Peak Velocity 81.0 cm/s AV Area Cont Eq vti 1.9 cm squared AV Area Cont Eq pk 2.2 cm squared MV Area PHT 5.4 cm squared Mitral E to A Ratio 0.9 MV E' Velocity 37.5 cm/s Mitral E to MV E' Ratio 6.5 Mitral E to LV E' Lateral Ratio 5.2 Mitral E to LV E' Septal Ratio 8.6 TR Peak Velocity 136.0 cm/s TR Peak Gradient 7.4 mmHg PV Peak Velocity 94.0 cm/s FINDINGS Left Ventricle Normal left ventricular size and systolic function, EF 71 %. No regional wall motion abnormalities. Grade I/IV diastolic dysfunction (abnormal relaxation filling pattern), normal to mildly elevated filling pressures. Right Ventricle The right ventricle is normal in size and function. Right Atrium The right atrium is normal in size. Left Atrium The left atrium is normal in size. Mitral Valve No gross abnormalities noted Aortic Valve No gross abnormalities noted Tricuspid Valve No gross abnormalities noted Pulmonic Valve No gross abnormalities noted Pericardium Normal pericardium without effusion. Aorta Normal ascending aorta dimension. IVC Normal IVC dimension with <50% respiratory change of the inferior vena cava. CONCLUSIONS Normal left ventricular size and systolic function, EF 71 %. No regional wall motion abnormalities. Grade I/IV diastolic dysfunction (abnormal relaxation filling pattern), normal to mildly elevated filling pressures. No significant stenotic or regurgitant lesions Normal cardiac chamber sizes. No intracardiac masses. No pericardial effusion. No similar previous studies are available for comparison Dr Danyell Marrero MD [facility] (Electronically Signed) Final Date: 09 March 2022 05:29 S
--- NOTE | 2022-03-08 17:14 | PC.NURSE ---
Msg lft for report, nurse will call me back.
--- NOTE | 2022-03-08 18:12 | PC.NURSE ---
Attempted to call report, nurse unavailable.
--- NOTE | 2022-03-08 19:09 | ECG_ITS ---
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 Measurements Intervals [place] Rate: 70 P: 77 SD: 153 QRS: 65 QRSD: 94 T: 70 QT: 403 QTc: 436 Interpretive Statements SINUS RHYTHM Compared to ECG 03/08/2022 15:06:06 No significant changes Electronically Signed On 03-08-2022 21:28:12 CDT by Sharon Noland M.D. [id number]
[2022-03-08 20:25] LABS: Troponin 5 6HR 7.59 ng/L (0-15)
[2022-03-08 20:51] LABS: Troponin 5 6HR Delta 1.59 ng/L (0-12)
[2022-03-08] MEDS: acetaminophen 325 mg Tablet 650 MG PO (21:35)
--- NOTE | 2022-03-08 21:42 | PM.CONSULT ---
Providers/Reason For Consult Consulting Physician/Specialty*: OPAL Marrero MD/cardiology Reason for Consult*: Patient with chest pain and elevated troponin T Requesting Physician: Dr. Hernandez Attending Physician: Blanquita Carreno MD Primary Care Provider: ESTELLE Lynn History of Present Illness History of Present Illness Brnet Hernández is a 51 year old male with a history of hypertension, dyslipidemia, alcohol abuse and smoking abuse, presents with the complaints of longer present of chest pain associated with a headache and dizziness. This patient has a history of chest pain off and on for the last 7 months or so. He been having 2-3 episodes of chest pain each week, each time lasting from few seconds to several minutes. The pain then gradually goes away . So the patient never sought any medical help for the symptoms. However today the pain was more severe and lasting longer. The pain also radiated to the back. He also was having more severe headache and flushing in the face. He has a longstanding history of head ache .. He has no fever, chills or cough. No orthopnea or PND. No abdominal pain or dysuria The patient is in the epigastric region. The intensity of the pain is moderate. It radiates across the chest and also to the back. No other associated symptoms or radiation. Patient has no previous history for coronary disease, myocardial infarction or congestive heart failure. He has a strong family history of premature atherosclerotic heart disease. His mother had a heart attack in her 30s and 40s. His father had heart attack in his 60s. Many of his cousins had myocardial infarctions in their 30s and 40s. He drinks 6 to 8 pack of alcohol a da, has been doing it for the last 30 years or so He also smokes 2 pack a day, has been smoking for 30+ years. No other substance abuse. He never had any cardiac work-up. At the time of examination, the patient grades the injury of pain as 2/10. Review of Systems Narrative: CONSTITUTIONAL: No fever or chills. EYES: No blurring of vision or other visual disturbances lately. ENT: No hoarseness of voice, auditory disturbances or sore throat. CARDIOVASCULAR: As mentioned above. RESPIRATORY: Questionable history of COPD GASTROINTESTINAL: No hematemesis or melena. GENITOURINARY: No dysuria or hematuria. INTEGUMENTARY: No skin rashes or history of skin cancer. NEURO: Headache as mentioned above. PSYCHIATRIC: No history of psychosis or major depression. HEMATOLOGIC: No bleeding disorders or significant anemia. ENDOCRINE: No history of polyuria or polydipsia. MUSCULOSKELETAL: No recent joint pain or swelling. ALLERGY/IMMUNOLOGY: As mentioned above. Medications/Allergies Home Medications Medication Instructions Recorded Confirmed Last Taken Type albuterol sulfate 90 mcg/actuation 1 inh INHALATION Q6H PRN #8.5 g 07/13/21 03/08/22 Unknown Rx aerosol inhaler (Ventolin HFA) budesonide-formoterol HFA 160 2 inh INHALATION BID 30 Days #10.2 08/10/21 03/08/22 03/07/22 Rx mcg-4.5 mcg/actuation aerosol g inhaler (Symbicort) tiotropium bromide 1.25 2 puff INHALATION DAILY #4 g 08/10/21 03/08/22 03/07/22 Rx mcg/actuation mist for inhalation (Spiriva Respimat) ibuprofen 200 mg tablet 1,200 mg PO Q6H PRN 11/11/21 03/08/22 12/03/21 History lisinopril 10 mg tablet 10 mg PO DAILY 11/11/21 03/08/22 12/03/21 History Allergies Allergy/AdvReac Type Severity Reaction Status Date / Time lidocaine Allergy Intermediate ALGY-Hives Verified 03/08/22 13:29 Current Medications Generic Name Dose Route Start Last Admin Trade Name Freq PRN Reason Stop Dose Admin Enoxaparin Sodium 80 mg 03/08/22 20:00 03/08/22 20:23 Enoxaparin 80 Mg/0.8 Ml Syringe SUBCUT 80 mg Q12H KRYSTAL Administration Nitroglycerin/Dextrose 50 mg in 250 mls @ 0 mls/hr 03/08/22 13:45 03/08/22 15:11 Nitroglycerin Drip IV 45 mcg/min .Q0M KRYSTAL 13.5 mls/hr Titration Protocol Per Protocol Morphine Sulfate 2 mg 03/08/22 15:13 03/08/22 18:45 Morphine 4 Mg/Ml Sdv 1 Ml IVP 2 mg Q4H PRN Administration SEVERE PAIN Pantoprazole Sodium 40 mg 03/08/22 15:45 03/08/22 15:40 Pantoprazole 40 Mg Sdv IVP 40 mg Q24H KRYSTAL Administration PFSH Acute PFSH: Medical History Elevated liver enzymes Essential hypertension GERD (gastroesophageal reflux disease) Hypertension screen Lower respiratory infection Medication management Shortness of Breath Surgical History H/O removal of testicle At age 20 - 21 Social History Smoking and tobacco status: current every day smoker Vitals/I&O/Wt Last Vital Signs Temp 97.1 F L 03/08/22 13:01 Pulse 79 03/08/22 20:57 Resp 18 03/08/22 19:10 BP 135/78 03/08/22 19:10 Pulse Ox 97 03/08/22 20:57 03/08/22 03/08/22 03/08/22 06:59 14:59 22:59 Intake Total 2.55 / 2.55 3.15 / 5.70 Balance 2.55 / 2.55 3.15 / 5.70 Weight last 48 hrs Weight 170 lb Physical Exam Narrative: GENERAL: The patient is alert and oriented times three. Not in any acute distress. HEENT: No significant pallor, icterus or lymphadenopathy. The pupils are reactant to light and symmetrical Oral cavity: There are no mucous membrane lesions. Funduscopic examination: The fundus is not visualized NECK: Trachea appears to be central. No masses noted. No JVD or thyromegaly appreciated. No carotid bruit. RESPIRATORY: Chest is symmetrical. No intercostals muscle retraction or any accessory muscle activation. There is no chest wall tenderness. Breath sounds are heard bilaterally. No rales or rhonchi heard. No evidence of any consolidation. BREASTS: Deferred. HEART: The PMI is in the 5th left intercostals space just inside the midclavicular line. No palpable precordial events. S1 and S2 are normal. No S3 or S4 heard. No pericardial rub or any click heard. ABDOMEN: No vessel pulsations or distention. No tenderness. No organomegaly appreciated. No abdominal bruit. Bowel sounds are normally heard. : Deferred. RECTAL: Deferred. LYMPHATIC: No lymphadenopathy noted in the neck or groin. EXTREMITIES: No edema or cyanosis. No clubbing. The pulses are symmetrical bilaterally. The radial, femoral, dorsalis pedis and the posterior tibial pulses are palpated and found to be in good volume and amplitude. MUSCULOSKELETAL: No acute joint deformities or swelling SKIN: There are no significant scars or skin rash noted. NEUROPSYCHIATRIC: The patient is alert and oriented x3. Appears to be in a good mood. The higher functions are grossly within normal limits. No tremors or rigidity noted. Data : 03/08/22 13:10 03/08/22 13:10 Other Labs: Laboratory Last Values WBC 8.8 10^3/uL (4.0-10.0) 03/08/22 13:10 RBC 5.36 10^6/uL (4.1-5.3) H 03/08/22 13:10 Hgb 17.3 g/dL (11.7-16.6) H 03/08/22 13:10 Hct 48.8 % (42.0-52.0) 03/08/22 13:10 MCV 91.0 fl (80-94) 03/08/22 13:10 MCH 32.3 pg (28.0-34.0) 03/08/22 13:10 MCHC 35.5 g/dL (30.0-36.0) 03/08/22 13:10 RDW 13.3 % (12.1-15.1) 03/08/22 13:10 Plt Count 188 10^3/cmm (130-400) 03/08/22 13:10 MPV 10.9 fL (7.4-10.4) H 03/08/22 13:10 Neut % (Auto) 67.2 % 03/08/22 13:10 Lymph % (Auto) 23.8 % 03/08/22 13:10 [place] % (Auto) 6.8 % 03/08/22 13:10 Eos % (Auto) 0.8 % 03/08/22 13:10 Baso % (Auto) 0.9 % 03/08/22 13:10 Neut # (Auto) 5.93 10^3/uL (1.8-7.7) 03/08/22 13:10 Lymph # (Auto) 2.1 10^3/uL (0.8-4.8) 03/08/22 13:10 [place] # (Auto) 0.6 10^3/uL (0.2-0.9) 03/08/22 13:10 Eos # (Auto) 0.1 10^3/uL (0.0-0.8) 03/08/22 13:10 Baso # (Auto) 0.1 10^3/uL (0.0-0.1) 03/08/22 13:10 Nucleated RBC % (auto) 0 % 03/08/22 13:10 Nucleated RBCs # 0.0 /100WBC 03/08/22 13:10 Sodium 139 mmol/L (136-145) 03/08/22 13:10 Potassium 4.4 mmol/L (3.5-5.1) 03/08/22 13:10 Chloride 102 mmol/L (98-107) 03/08/22 13:10 Carbon Dioxide 25 mmol/L (22-29) 03/08/22 13:10 Anion Gap 16.4 (5-19) 03/08/22 13:10 BUN 7 mg/dL (6-20) 03/08/22 13:10 Creatinine 0.7 mg/dL (0.7-1.2) 03/08/22 13:10 GFR Calculation 119.4 mL/min (90-130) 03/08/22 13:10 Glucose 109 mg/dL (65-115) 03/08/22 13:10 Estimat Average Glucose 105 03/08/22 13:10 Hemoglobin A1c 5.3 % (4.0-6.0) 03/08/22 13:10 Calculated Osmolality 287 mOsm/kg (285-295) 03/08/22 13:10 Calcium 9.8 mg/dL (8.5-10.5) 03/08/22 13:10 Total Bilirubin 0.3 mg/dL (0.15-1.2) 03/08/22 13:10 AST 66 U/L (0-40) H 03/08/22 13:10 ALT 82 U/L (0-41) H 03/08/22 13:10 Alkaline Phosphatase 136 IU/L (40-130) H 03/08/22 13:10 Troponin T Baseline 6 ng/L (0-15) 03/08/22 13:10 Troponin T 120 Minute 6.45 ng/L (0-15) 03/08/22 14:58 Delta Troponin T 0.45 ABS# (0-10) 03/08/22 14:58 Troponin T Hi Sens 6Hr 7.59 ng/L (0-15) 03/08/22 19:56 Troponin T Hi Sens 6Hr Delta 1.59 ng/L (0-12) 03/08/22 19:56 NT-Pro-B Natriuret Pep 106 pg/mL (0-125) 03/08/22 13:10 Total Protein 8.0 g/dL (6.6-8.7) 03/08/22 13:10 Albumin 4.9 g/dL (3.5-5.2) 03/08/22 13:10 Globulin 3.1 g/dL (1.3-4.6) 03/08/22 13:10 Triglycerides 137 mg/dL (0-150) 03/08/22 13:10 Cholesterol 301 mg/dL (0-200) H 03/08/22 13:10 LDL Cholesterol, Calc 231 mg/dL (50-129) H 03/08/22 13:10 HDL Cholesterol 43 mg/dL (60-100) L 03/08/22 13:10 LDL/HDL Ratio 5.37 RATIO (0.00-3.22) H 03/08/22 13:10 Cholesterol/HDL Ratio 7.00 mg/dL (1.0-5.00) H 03/08/22 13:10 Procalcitonin 0.06 ng/mL (0-0.5) 03/08/22 13:10 TSH 1.10 uIU/mL (0.27-4.20) 03/08/22 13:10 EKG 1: My Interpretation: The EKG from 03/08/2022 revealed a normal sinus rhythm with a normal ST Ts. Normal GA and QRS duration. EKG computer-generated impression: Chest X-Ray 03/08/22 13:09 IMPRESSION: Unremarkable chest radiograph. A&P Assessment and plan (1) Chest pain: Patient has been somewhat atypical. No evidence of any myocardial injury so far. The EKG does not show any acute ischemic changes. However in view of his risk factors, possibility of underlying coronary artery disease causing the symptoms cannot be excluded. It would be appropriate to do serial enzymes and EKGs. Once the myocardial infarction is ruled out, we may go ahead and do a Myocardial perfusion imaging to further evaluate his coronary status and decide on further management. Status: Acute (2) Hypertensive urgency: Patient's blood pressure seems to be slowly getting under control. Her blood pressure is still stage II. We will optimize antihypertensive medication. Status: Acute (3) Alcohol abuse: Patient is strongly advised to quit his drinking Status: Acute (4) Smoking addiction: Patient is strongly advised to quit smoking. Cardiovascular implications were discussed. Status: Acute (5) Dyslipidemia: Consider starting the patient on a statin drug, when the liver enzymes are trending downwards Status: Acute Plan The other problems are Erythrocytosis-possibly from smoking COPD GERD Elevated liver enzymes After reviewing the above test results and also based on the patient's clinical progress, further recommendations will be made. Thank you for the opportunity to evaluate this patient and make these recommendations. Consult Attestations Medical Necessity Statement: Patient requires continued hospital stay for close monitoring and further management Coding Level of Care Code Acute Correctional Nurse for [facility] Fwd History Detailed Exam Detailed Medical Decision Making High Complexity Diagnoses Chest pain R07.9 Hypertensive urgency I16.0 Alcohol abuse F10.10 Smoking addiction F17.200 Dyslipidemia E78.5
[2022-03-09] VITALS (15 sets, daily range): BP systolic 129–196; BP diastolic 85–120; PULSE 68–99; RESP 12–23; TEMP 36.5–37.1; O2SAT 93–96
--- NOTE | 2022-03-09 00:35 | ECG_ITS ---
[facility] Test Date: 2022-03-09 Pat Name: Brent Hernández Department: Room: 276 Gender: Male Safety Assistant: Nadine Bell : 1970 Requested By: Danyell Marrero Order Number: [id number] Brock MD: Danyell Marrero M.D. Interpretive Statements NAME OF STUDY: LEXISCAN SESTAMIBI STRESS TEST INDICATION: Cp, PROCEDURE: At the baseline, the EKG revealed normal sinus rhythm with a normal ST Ts. The baseline blood pressure was 158/94 mm Hg with a heart rate of 80/min Lexiscan was infused over a period of 20 seconds. A total of 0.4 milligrams of Lexiscan was infused. The stress phase was continued for a total of 5 minutes. Heart rate at the end of the stress phase was 104 with a blood pressure 150/89. The EKG at the peak infusion revealed no significant changes. Sestamibi was injected 20 seconds after the Lexiscan infusion. Blood pressure at the end of the recovery phase was 167/89 with a heart rate of 98 per minute. CONCLUSION: 1. No significant EKG changes with the LexiScan infusion 2. No LexiScan induced chest pain or cardiac arrhythmia 3. Normal blood pressure and heart rate response 4. Sestamibi/sestamibi perfusion scan pending; see separate report. Electronically Signed On 03-09-2022 14:09:08 CDT by Danyell Marrero M.D. [id number]
--- NOTE | 2022-03-09 00:36 | NMCV_ITS ---
NM gris perf SPECT r/s* [id number] Brent Hernández Age: 51 Gender: M : 1970 Exam Date: 03/09/2022 07:47 Ordering Phys: Danyell Marrero MD ([email or web address]) Technologist: DA Multani Exam Location: [facility] Indications: CHEST PAIN STRESS TEST [facility] IMAGE PROTOCOL Rest/Stress 1 Lexiscan Day Radiopharmaceutical Dose (mCi) Administration Site Administered by Rest: Tc-99m 10.9 IV DA Multani Sestamibi Stress:Tc-99m 32.8 IV DA Multani Sestamibi Rest: 09-Mar-2022 60 Discovery 630 Stress: 09-Mar-2022 30 Discovery 630 0.4mg Lexiscan. Images obtained in supine and prone position. SPECT RESULTS Technical Quality: Excellent Raw Data Analysis: Normal Image Corrections: No attenuation or motion correction applied Summed Stress Score: 0 Summed Rest Score: 5 Summed Difference Score: 0 PERFUSION FINDINGS Moderate area of slightly decreased tracer uptake was noted in the inferior, inferoseptal and anteroseptal regions. No significant reversibility was noted in these regions. FUNCTIONAL RESULTS (calculated via Gated SPECT) Stress Image LV EF (%): 53 Stress EDV (mL):96 TID: 1.18 Stress ESV (mL):45 FUNCTIONAL FINDINGS: Segmental wall motion analysis revealing no gross wall motion normalities. IMPRESSIONS 1. Myocardial perfusion imaging revealing areas of persistent decreased tracer uptake in the inferior, inferoseptal and anteroseptal regions, suggestive of myocardial scarring versus attenuation artifacts. 2. Normal LV ejection fraction 53%. 3. Segmental wall motion analysis revealing no gross wall motion abnormalities. 4. LV volume upper limit of normal 5. Elevated transient ischemic dilatation ratio, may suggest endocardial ischemia. Clinical correlation is recommended. No similar previous studies are available for comparison Dr Danyell Marrero MD FAC (Electronically Signed) Final Date: 09 March 2022 13:34 S
[2022-03-09] MEDS: morphine 4 mg/mL SDV 1 mL 2 MG IVP (03:11)
[2022-03-09 05:09] LABS: Basophils # 0.1 10^3/uL (0.0-0.1); Basophils % 0.8 %; Eosinophils # 0.2 10^3/uL (0.0-0.8); Eosinophils % 1.9 %; Hematocrit 40.1 % (42.0-52.0); Hemoglobin 14.4 g/dL (11.7-16.6); Lymphocytes # 3.3 10^3/uL (0.8-4.8); Lymphocytes % 35.7 %; Mean Corpuscular HGB Conc 35.9 g/dL (30.0-36.0); Mean Corpuscular Hemoglobin 32.2 pg (28.0-34.0); Mean Corpuscular Volume 89.7 fl (80-94); Mean Platelet Volume 11.2 fL (7.4-10.4); Monocytes # 0.7 10^3/uL (0.2-0.9); Monocytes % 7.2 %; Neutrophils # 5.04 10^3/uL (1.8-7.7); Neutrophils % 54.2 %; Nucleated Red Blood Cells % 0 %; Platelet Count 149 10^3/cmm (130-400); Red Blood Count 4.47 10^6/uL (4.1-5.3); Red Cell Distribution Width 13.1 % (12.1-15.1); White Blood Count 9.3 10^3/uL (4.0-10.0)
[2022-03-09 05:34] LABS: Magnesium 1.9 mg/dL (1.7-2.3); Phosphorus 4.7 mg/dL (2.5-4.5)
[2022-03-09 05:55] LABS: Alanine Aminotransferase 57 U/L (0-41); Albumin Level 3.8 g/dL (3.5-5.2); Alkaline Phosphatase 84 IU/L (40-130); Anion Gap 15.8 (5-19); Aspartate Amino Transferase 42 U/L (0-40); Blood Urea Nitrogen 10 mg/dL (6-20); Calcium 9.1 mg/dL (8.5-10.5); Carbon Dioxide 24 mmol/L (22-29); Chloride 101 mmol/L (98-107); Globulin 2.6 g/dL (1.3-4.6); Glomerular Filtration Rate 102.3 mL/min (90-130); Glucose 92 mg/dL (65-115); Osmolality Calculated 283 mOsm/kg (285-295); Potassium 3.8 mmol/L (3.5-5.1); Sodium 137 mmol/L (136-145); Total Bilirubin 0.5 mg/dL (0.15-1.2); Total Protein 6.4 g/dL (6.6-8.7)
--- NOTE | 2022-03-09 07:50 | PC.NURSE ---
to [facility] for a stress test.
[2022-03-09] MEDS: regadenoson 0.4 Mg/5 ml Syringe IVP (08:50)
--- NOTE | 2022-03-09 08:56 | PC.NURSE ---
in [facility] dr truong was called about nitro drip, replied to hold drip for now. if pt complains again of chest pain to restart drip. stop time till 0804
--- NOTE | 2022-03-09 10:12 | CT_ITS ---
WS: [id number] CTA THORACIC TECHNIQUE: Contrast enhanced CTA of the thoracic aorta with coronal and sagittal reformatted images a nd maximum intensity projection (MIP) images. CLINICAL INFORMATION: check for aortic disection COMPARISON: CTa July 31, 2021 DLP: 1045.[address] scans at [facility] use at least one of these dose optimization techniques: automated e xposure control; mA and/or kV adjustment per patient size (includes targeted exams where dose is matc hed to clinical indication); or iterative reconstruction. FINDINGS: Normal caliber thoracic aorta. No evidence of Aortic dissection. No evidence of intramural hematoma. Normal caliber descending thoracic aorta. Visualized upper abdominal aorta appears normal. Normal joana iac and SMA. Proximal main pulmonary arteries appear normal. No mediastinal or hilar lymphadenopathy. Adrenal glands are normal. Small esophageal hiatal hernia. B oth lungs are well aerated. No acute pulmonary infiltrates. No focal pneumonia or pleural fluid. Calc ified granuloma RIGHT lower lobe. Slight subsegmental atelectasis RIGHT lower lobe. No axillary lymph adenopathy. CT/CT angio chest 93545 IMPRESSION: 1. Normal caliber thoracic aorta. No evidence of aortic dissection. Normal lynn iber descending thoracic aorta. 2. No acute pulmonary infiltrates. No focal pneumonia or pleural fluid. 3. No mediastinal or hilar lymphadenopathy. 4. No acute chest findings.
[2022-03-09] MEDS: aspirin 81 mg EC Tablet PO (10:28)
[2022-03-09] MEDS: enoxaparin 80 mg/0.8 mL Syringe SUBCUT ×2 (10:28→20:44)
[2022-03-09] MEDS: lisinopril 20 mg Tablet 40 MG PO (10:52)
[2022-03-09] MEDS: nitroglycerin drip 50 MG/250 ML PREMIX IV (11:08)
[2022-03-09] MEDS: iohexol 350 mg/mL 100 mL Btl IV (11:15)
[2022-03-09 11:16] LABS: Lipase 13 U/L (13-60)
--- NOTE | 2022-03-09 14:25 | PM.PN ---
Subjective Subjective: Seen this morning. Patient was seen after his stress test. He stated he did have some chest pain during his stress test and also having a little bit of pain now 2 out of 10 rating to the back. He says it comes and goes. He is not really chest pain-free yet. Patient's blood pressure still high. Nitro drip was turned off. Vitals/I&O/Wt Last Vital Signs Temp 97.7 F 03/09/22 11:31 Pulse 81 03/09/22 13:30 Resp 23 H 03/09/22 13:30 BP 153/85 03/09/22 13:30 Pulse Ox 95 03/09/22 11:31 03/08/22 03/09/22 03/09/22 22:59 06:59 14:59 Intake Total 301.425 / 303.975 477.775 / 781.750 575.850 / 575.850 Output Total 650 / 650 400 / 400 Balance 301.425 / 303.975 -172.225 / 131.750 175.850 / 175.850 Weight last 48 hrs Weight 77.111 kg Physical Exam Narrative: General: Alert oriented x3, patient seen sitting up in bed appearing comfortable.? Still complaining of chest pain radiating to the back. HEENT: Normocephalic, atraumatic, EOMI, breathing normally, no acute distress. Cardio: Regular rate rhythm, normal S1-S2, no gross murmurs are evident at this time. Respiratory: Good bilateral air entry, mild rhonchi at bases, GI: Abdomen soft, nontender, nondistended, bowel sounds + Behavior: Appropriate and cooperative Extremities: Trace lower extremity edema bilaterally, no cyanosis Data : 03/09/22 04:55 03/09/22 04:55 A&P Assessment and plan (1) Dyslipidemia: Status: Acute (2) Smoking addiction: Status: Acute (3) Alcohol abuse: Status: Acute (4) Unstable angina: Status: Acute (5) Alcohol use: Status: Acute (6) Hypertensive urgency: Status: Acute (7) Chest pain: Status: Acute (8) Alcohol withdrawal: Status: Acute (9) COPD (chronic obstructive pulmonary disease): Status: Acute (10) GERD (gastroesophageal reflux disease): Status: Acute (11) Essential hypertension: Status: Acute (12) Shortness of Breath: Status: Acute Plan #Unstable angina #Hypertensive urgency #Smoker, nicotine dependence #COPD #GERD #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 Hemoglobin A1c 5.3. Lipid profile very abnormal. Cholesterol 301, LDL 231, HDL 43. ? Offer nicotine patch ? Start aspirin, loaded with Plavix, therapeutic Lovenox ? Continue on nitro drip. Add lisinopril 40 daily. Wean off nitro drip as able. His blood pressure was 180/125 this morning. ? Troponins negative. ? Initial EKG did not show any ischemic changes so far. ? Consult cardiology ? We will check hepatitis panel. Pending ? Patient went for stress test today. Result is pending. We will optimize his blood pressure and wean off nitro drip as able. We will gradually lower his blood pressure. ? CTA chest ruled out aortic dissection. Lipase 13. Ruled out pancreatitis. Full code Admit to ICU. Attestations Medical Necessity Statement*: Patient has hypertensive urgency. He also has unstable angina. He will need to stay in the hospital for another 24 to 48 hours to get optimal blood pressure control. He may need further cardiac work-up. Defer that to cardiology. Coding Level of Care Code Acute Information Technology Assistant for g Fwd Diagnoses Dyslipidemia E78.5 Smoking addiction F17.200 Alcohol abuse F10.10 Unstable angina I20.0 Alcohol use Z72.89 Hypertensive urgency I16.0 Chest pain R07.9 Alcohol withdrawal F10.239 COPD (chronic obstructive pulmonary disease) J44.9 GERD (gastroesophageal reflux disease) K21.9 Essential hypertension I10 Shortness of Breath R06.02
--- NOTE | 2022-03-09 16:48 | PM.PN ---
Subjective Subjective: Patient had a Myocardial perfusion imaging today. He was found to have elevated transient ischemic dilatation ratio. He also was found to have areas of fixed defect in the inferior, inferoseptal and anteroseptal regions. He continues to have chest pain. We tried to stop his IV nitro. Apparently the chest pain started coming back. For that reason, he was put back on the IV nitro. Medications: Medication Review Details: Current Medications Aminophylline (Aminophylline 25 Mg/Ml Sdv 10 Ml) 25 mg IVP Q2M PRN PRN Reason: see dose instructions Stop: 03/10/22 07:26 Aspirin (Aspirin 81 Mg Ec Tablet) 81 mg PO DAILY [facility] Last Admin: 03/09/22 10:28 Dose: 81 mg Documented by: Diphenhydramine HCl (Diphenhydramine 50 Mg Capsule) 50 mg PO ONCE ONE Stop: 03/09/22 16:45 Enoxaparin Sodium (Enoxaparin 80 Mg/0.8 Ml Syringe) 80 mg SUBCUT Q12H [facility] Last Admin: 03/09/22 10:28 Dose: 80 mg Documented by: Sodium Chloride (Sodium Chloride 0.9%) 1,000 mls @ 50 mls/hr IV .Q20H ONE Stop: 03/10/22 12:43 Lisinopril (Lisinopril 20 Mg Tablet) 40 mg PO DAILY [facility] Last Admin: 03/09/22 10:52 Dose: 40 mg Documented by: Morphine Sulfate (Morphine 4 Mg/Ml Sdv 1 Ml) 2 mg IVP Q4H PRN PRN Reason: SEVERE PAIN Last Admin: 03/09/22 03:11 Dose: 2 mg Documented by: Nitroglycerin (Nitroglycerin 0.4 Mg Sublingual Tablet) 0.4 mg SUBLINGUAL Q5M PRN PRN Reason: CHEST PAIN Stop: 03/10/22 07:26 Ondansetron HCl (Ondansetron 2 Mg/Ml Sdv 2 Ml) 4 mg IVP Q8H PRN PRN Reason: vomiting, or N/V if npo Ondansetron HCl (Ondansetron 2 Mg/Ml Sdv 2 Ml) 4 mg IVP Q2M PRN PRN Reason: NAUSEA Pantoprazole Sodium (Pantoprazole 40 Mg Sdv) 40 mg IVP Q24H [facility] Last Admin: 03/08/22 15:40 Dose: 40 mg Documented by: Vitals/I&O/Wt Last Vital Signs Temp 98.1 F 03/09/22 15:46 Pulse 75 03/09/22 15:46 Resp 14 03/09/22 15:46 BP 129/94 03/09/22 15:46 Pulse Ox 93 03/09/22 15:46 03/09/22 03/09/22 03/09/22 06:59 14:59 22:59 Intake Total 477.775 / 781.750 595.950 / 595.950 240.3 / 836.250 Output Total 650 / 650 400 / 400 580 / 980 Balance -172.225 / 131.750 195.950 / 195.950 -339.7 / -143.750 Weight last 48 hrs Weight 170 lb Physical Exam Narrative: GENERAL: The patient is alert and oriented times three. Not in any acute distress. HEENT: No significant pallor, icterus or lymphadenopathy.Oral cavity: There are no mucous membrane lesions. NECK: Trachea appears to be central. No masses noted. No JVD or thyromegaly appreciated. RESPIRATORY: Chest is symmetrical. No intercostals muscle retraction or any accessory muscle activation. There is no chest wall tenderness. Breath sounds are heard bilaterally. No rales or rhonchi heard. No evidence of any consolidation. BREASTS: Deferred. HEART: The heart sounds are normal. No S3 or S4. No significant murmurs. No pericardial rub ABDOMEN: No vessel pulsations or distention. No tenderness. No organomegaly appreciated. Bowel sounds are normally heard. : Deferred. RECTAL: Deferred. LYMPHATIC: No lymphadenopathy noted in the neck. EXTREMITIES: No edema or cyanosis. No clubbing. MUSCULOSKELETAL: No acute joint deformities or swelling SKIN: There are no significant rashes or ecchymosis NEUROPSYCHIATRIC: The patient is alert and oriented x3. Appears to be in a good mood. No tremors or rigidity noted. Data : 03/10/22 02:50 03/10/22 02:50 Other Labs: Laboratory Last Values WBC 9.3 10^3/uL (4.0-10.0) 03/09/22 04:55 RBC 4.47 10^6/uL (4.1-5.3) 03/09/22 04:55 Hgb 14.4 g/dL (11.7-16.6) 03/09/22 04:55 Hct 40.1 % (42.0-52.0) L 03/09/22 04:55 MCV 89.7 fl (80-94) 03/09/22 04:55 MCH 32.2 pg (28.0-34.0) 03/09/22 04:55 MCHC 35.9 g/dL (30.0-36.0) 03/09/22 04:55 RDW 13.1 % (12.1-15.1) 03/09/22 04:55 Plt Count 149 10^3/cmm (130-400) 03/09/22 04:55 MPV 11.2 fL (7.4-10.4) H 03/09/22 04:55 Neut % (Auto) 54.2 % 03/09/22 04:55 Lymph % (Auto) 35.7 % 03/09/22 04:55 Tripp % (Auto) 7.2 % 03/09/22 04:55 Eos % (Auto) 1.9 % 03/09/22 04:55 Baso % (Auto) 0.8 % 03/09/22 04:55 Neut # (Auto) 5.04 10^3/uL (1.8-7.7) 03/09/22 04:55 Lymph # (Auto) 3.3 10^3/uL (0.8-4.8) 03/09/22 04:55 Tripp # (Auto) 0.7 10^3/uL (0.2-0.9) 03/09/22 04:55 Eos # (Auto) 0.2 10^3/uL (0.0-0.8) 03/09/22 04:55 Baso # (Auto) 0.1 10^3/uL (0.0-0.1) 03/09/22 04:55 Nucleated RBC % (auto) 0 % 03/09/22 04:55 Nucleated RBCs # 0.0 /100WBC 03/09/22 04:55 Sodium 137 mmol/L (136-145) 03/09/22 04:55 Potassium 3.8 mmol/L (3.5-5.1) 03/09/22 04:55 Chloride 101 mmol/L (98-107) 03/09/22 04:55 Carbon Dioxide 24 mmol/L (22-29) 03/09/22 04:55 Anion Gap 15.8 (5-19) 03/09/22 04:55 BUN 10 mg/dL (6-20) 03/09/22 04:55 Creatinine 0.8 mg/dL (0.7-1.2) 03/09/22 04:55 GFR Calculation 102.3 mL/min (90-130) 03/09/22 04:55 Glucose 92 mg/dL (65-115) 03/09/22 04:55 Estimat Average Glucose 105 03/08/22 13:10 Hemoglobin A1c 5.3 % (4.0-6.0) 03/08/22 13:10 Calculated Osmolality 283 mOsm/kg (285-295) L 03/09/22 04:55 Calcium 9.1 mg/dL (8.5-10.5) 03/09/22 04:55 Phosphorus 4.7 mg/dL (2.5-4.5) H 03/09/22 04:55 Magnesium 1.9 mg/dL (1.7-2.3) 03/09/22 04:55 Total Bilirubin 0.5 mg/dL (0.15-1.2) 03/09/22 04:55 AST 42 U/L (0-40) H 03/09/22 04:55 ALT 57 U/L (0-41) H 03/09/22 04:55 Alkaline Phosphatase 84 IU/L (40-130) 03/09/22 04:55 Troponin T Baseline 6 ng/L (0-15) 03/08/22 13:10 Troponin T 120 Minute 6.45 ng/L (0-15) 03/08/22 14:58 Delta Troponin T 0.45 ABS# (0-10) 03/08/22 14:58 Troponin T Hi Sens 6Hr 7.59 ng/L (0-15) 03/08/22 19:56 Troponin T Hi Sens 6Hr Delta 1.59 ng/L (0-12) 03/08/22 19:56 NT-Pro-B Natriuret Pep 106 pg/mL (0-125) 03/08/22 13:10 Total Protein 6.4 g/dL (6.6-8.7) L 03/09/22 04:55 Albumin 3.8 g/dL (3.5-5.2) 03/09/22 04:55 Globulin 2.6 g/dL (1.3-4.6) 03/09/22 04:55 Triglycerides 137 mg/dL (0-150) 03/08/22 13:10 Cholesterol 301 mg/dL (0-200) H 03/08/22 13:10 LDL Cholesterol, Calc 231 mg/dL (50-129) H 03/08/22 13:10 HDL Cholesterol 43 mg/dL (60-100) L 03/08/22 13:10 LDL/HDL Ratio 5.37 RATIO (0.00-3.22) H 03/08/22 13:10 Cholesterol/HDL Ratio 7.00 mg/dL (1.0-5.00) H 03/08/22 13:10 Lipase 13 U/L (13-60) 03/09/22 05:05 Procalcitonin 0.06 ng/mL (0-0.5) 03/08/22 13:10 TSH 1.10 uIU/mL (0.27-4.20) 03/08/22 13:10 A&P Assessment and plan (1) Chest pain: In view of the patient's ongoing chest pain, abnormal perfusion imaging findings and strong family history for premature heart disease, it may be appropriate to go ahead with a cardiac catheterization, to further evaluate his coronary status and decide on further management. The risk of bleeding, hematoma, vascular injury, myocardial infarction, CVA, renal failure and other concomitant complications were explained in detail. Patient understood this well and consented to proceed. Status: Acute (2) Hypertensive urgency: Patient's blood pressure seems to be slowly getting under control. Her blood pressure is still stage II. We will continue to optimize antihypertensive medication. Status: Acute (3) Alcohol abuse: Patient seems to be doing okay without alcohol so far. He is planning to quit Status: Acute (4) Smoking addiction: Patient is strongly advised to quit smoking. Cardiovascular implications were discussed. Status: Acute (5) Dyslipidemia: Consider starting the patient on a statin drug, when the liver enzymes are trending downwards Status: Acute Plan The other problems are Erythrocytosis-possibly from smoking COPD GERD Elevated liver enzymes After reviewing the above test results and also based on the patient's clinical progress, further recommendations will be made. Cardiac catheterization in the morning Attestations Medical Necessity Statement*: Patient requires continued hospital stay for close monitoring and further management Coding Level of Care Code Acute Hvac Installation Technician for Chg Fwd History Expanded Problem Focused Exam Detailed Medical Decision Making Moderate Complexity Diagnoses Chest pain R07.9 Hypertensive urgency I16.0 Alcohol abuse F10.10 Smoking addiction F17.200 Dyslipidemia E78.5
[2022-03-09] MEDS: pantoprazole 40 mg SDV IVP (17:34)
[2022-03-09] MEDS: hyDRALAzine 20 mg/mL INJ 1 mL 10 MG IVP (19:57)
[2022-03-10] VITALS (51 sets, daily range): BP systolic 121–178; BP diastolic 77–118; PULSE 57–91; RESP 12–24; TEMP 36.4–37.1; O2SAT 93–98
[2022-03-10] MEDS: morphine 4 mg/mL SDV 1 mL 2 MG IVP ×2 (00:18→20:37)
[2022-03-10 03:18] LABS: Basophils # 0.1 10^3/uL (0.0-0.1); Basophils % 0.7 %; Eosinophils # 0.2 10^3/uL (0.0-0.8); Eosinophils % 2.5 %; Hematocrit 44.2 % (42.0-52.0); Hemoglobin 15.2 g/dL (11.7-16.6); Lymphocytes # 3.7 10^3/uL (0.8-4.8); Lymphocytes % 44.5 %; Mean Corpuscular HGB Conc 34.4 g/dL (30.0-36.0); Mean Corpuscular Volume 93.1 fl (80-94); Mean Platelet Volume 11.6 fL (7.4-10.4); Monocytes # 0.8 10^3/uL (0.2-0.9); Monocytes % 9.6 %; Neutrophils # 3.54 10^3/uL (1.8-7.7); Neutrophils % 42.5 %; Nucleated Red Blood Cells % 0 %; Platelet Count 146 10^3/cmm (130-400); Red Blood Count 4.75 10^6/uL (4.1-5.3); Red Cell Distribution Width 13.7 % (12.1-15.1); White Blood Count 8.3 10^3/uL (4.0-10.0)
[2022-03-10 03:35] LABS: Anion Gap 14.8 (5-19); Blood Urea Nitrogen 12 mg/dL (6-20); Calcium 9.5 mg/dL (8.5-10.5); Carbon Dioxide 24 mmol/L (22-29); Chloride 103 mmol/L (98-107); Glomerular Filtration Rate 89.3 mL/min (90-130); Glucose 105 mg/dL (65-115); Magnesium 2.1 mg/dL (1.7-2.3); Osmolality Calculated 286 mOsm/kg (285-295); Potassium 3.8 mmol/L (3.5-5.1); Sodium 138 mmol/L (136-145)
[2022-03-10] MEDS: sodium chloride 0.9% 1,000 ML 50 ML IV (05:00)
[2022-03-10] MEDS: diphenhydrAMINE 50 mg Capsule PO (05:00)
--- NOTE | 2022-03-10 05:23 | XACV_ITS ---
Exam Room: [facility] Ht: 178 cm Wt: 77 kg BSA: 1.96 m2 Gender: Male : 1970 Any Known Allergies: Lidocaine Exam Priority: Routine Indication(s): - Abnormal nuclear perfusion study - Chest pain Procedure(s): Procedure Description: Diagnostic procedure Procedure Description: Left Heart Catheterization Procedure Description: Left ventriculography Procedure Description: Coronary Angiography Janes VELAZQUEZ; Diagnostic Cath Status: Urgent Diagnostic Findings * The left main is a medium caliber vessel with no significant sclerotic lesion. * The left anterior descending artery is a medium caliber vessel which appears to wrap around the LV apex. The proximal left anterior descending artery was found to have mild diffuse plaques. Mid segment of the artery was found to have around 30 to 40% diffuse irregular narrowing. The distal artery was found to have a segmental narrowing of around 40%. The first and the second diagonal branches were found to have around 40% ostial narrowing.. * The left circumflex artery is a nondominant medium caliber vessel . The proximal segment of the artery was found to have diffuse narrowing of around 40%. The both bifurcation branches also were found to have proximal around 20 to 30% narrowing. No other significant stenotic lesions were noted. * The right coronary artery is a medium caliber dominant vessel. The proximal segment of the artery was found to have minimal intimal regularities. Mid segment of the artery was found to have around 40% lesion proximally. The PDA and the PLV branches were found to have mild diffuse intimal irregularities. Conclusions 1. This is a 51-year-old white male with a history of hypertension, dyslipidemia, heavy smoking abuse, alcohol abuse, presenting with prolonged episode of chest pain. He had a Myocardial perfusion imaging which revealed a elevated transient ischemic dilatation ratio. He had some areas of fixed defects. In view of the ongoing worsening of symptoms, abnormal Myocardial perfusion imaging, in order to further evaluate his coronary status, a cardiac catheterization was recommended. Patient underwent left heart catheterization with left and right coronary angiogram and LV angiogram today. The findings are as follows.. 2. Mild to moderate diffuse disease was noted although the coronary arteries. The LVEDP was 18 mmHg. LV ejection fraction was around 55%. Based on the angiogram findings, it was opted to treat the patient medically. Diagnostic RX Recommendation: medical therapy and/or counseling LV EDP: 18 mmHg Ventriculography Ejection Fraction: 55.0 % Left Ventriculography Findings: * The LV gram was performed in the CARLOS position. The LV cavity appeared to be normal size. LV ejection fraction was around 55%. No intracardiac masses or any filling defects were noted. No significant wall motion abnormalities were noted.. Pressures Phase:Rest AO : 56 / 23 ( 35 ) @ 7:24:00 AM 116 / 81 ( 96 ) @ 7:25:00 AM 132 / 80 ( 105 ) @ 7:37:00 AM 128 / 80 ( 104 ) @ 7:37:00 AM 119 / 63 ( 86 ) @ 7:37:00 AM LV : 139 / -1 / 18 @ 7:36:00 AM 134 / 0 / 20 @ 7:37:00 AM 134 / 1 / 20 @ 7:37:00 AM Valves Phase:DefaultPhase AV : 6.0 @ 6:52:56 AM AV Mean Gradient: 13.0 @ 6:52:56 AM Clinical Evaluation EBL: 5mL-10mL Procedural Details Procedure Consent Obtained. Admit Source: In Patient. Pre-Procedure Time Out. Identified patient by full name and date of as verbalized by the patient/guarantor. Does the consent match the physician's order: Yes. Accurate & Complete Informed Consent: Yes. Inpatient/Outpatient History & Physical on Chart: Yes. If H&P is completed, is and addenduem needed: No; If yes, is the addendum complete: N/A. Visualize and Verify Site with Patient/Guarantor: N/A. Relevant Radiology Images available: N/A. The risks, benefits, and alternatives of sedation and/or procedure were discussed by physician. The patient agrees to continue. Procedure started. CSHA Clinical Fraility Score: 3: Managing Well. Data Center Manager Indications: Suspected CAD. Chest Pain Symptom Assessment: Typical Angina Symptoms. Cardiovascular Instability: No, stable. Correct patient, site and procedure confirmed by cath team. Current diagnosis: Chest Pain, Abnormal Stress test. PERRLA. Strong, equal hand grooming assistant bilaterally. Lungs clear x 5 lobes. IV Site on Arrival: 20 gauge in the right hand. IV Fluids: 0.9% NaCl at KVO. 0 mL infused prior to laborer drying department. Pre Procedural Pulses: bilateral radial was 3+. Pre Procedural Pulses: bilateral posterior tibial was Doppled. Pre Procedural Pulses: bilateral dorsalis pedis was Doppled. Oxygen started at 3liters/min via nasal canula. right groin was prepped with chloroprep then draped in the usual sterile fashion. right radial was prepped with chloroprep then draped in the usual sterile fashion. Baseline sample Acquired. HR: 83 BPM. Patient's family unavailable. Equipment: 6F - Radial. Cardiac Cath Pack. ACIST Manifold Kit Model BT 2000. Heparinized Saline (2 units/mL), 1000 mL bag. Physician notified. Scrub to give a test dose of subcutaneous lidocaine to test for allergy since the reaction was noted from a lidocaine patch.. This was a verbal order from Dr Marrero when he was notified of the patient's allergy. No reaction to injection site noted. Physician arrived. Physician scrubbed in. Immediate Pre-Procedure Time Out. Correct Patient: Yes; Correct Procedure: Yes; Correct Site: Yes; Correct Patient Position: Yes; Correct Supplies: Yes; Dried Flammable Prep: Yes; Blood Products Available: N/A;. Lidocaine 1% infiltrated to the right radial. Arterial access obtained. A 5 czech TIG catheter in over wire. Multiple views taken of left coronary artery. Catheter redirected to the RCA. Multiple views taken of right coronary artery. Catheter removed over the standard wire. A 5 czech Angled Pig catheter in over wire. EDP Sample taken: LV 139/-2,18; HR: 75 BPM; SpO2: 98%. LV gram performed in CARLOS @ 10 mL/second for a total of 30 mL. Patient EF: Normal. EDP Sample taken: LV 134/0,20; HR: 75 BPM; SpO2: 97%. Pullback taken: LV 134/1,20; AO 132/80(105); Mean: 13mmHg, Peak to Peak: 6mmHg, SEP: 7sec/min; HR: 76 BPM; SpO2: 97%. Catheter removed over the standard wire. Physician review of films. Physician scrubbed out. A TR Band was successful obtaining hemostatsis at the Right Radial artery insertion site. TR band placed. Hemostasis obtained. Post Procedure: Pulses reassessed and unchanged. PERRLA. Strong, equal hand grooming assistant bilaterally. No VTE prophylaxis required. Medication's Wasted: Lidocaine 1% = 3 mL Heparin 2000 units Fentanyl 25 mcg. Total IV fluids: 283 mL. Fluoro: 5:01. Contrast type used: Omnipaque 300 mg/mL, 150 mL bottle. [id number]. Post-op diagnosis: Mild/Moderate CAD. Complications: None. Estimated blood loss: 5mL-10mL. Responsiveness - Normal response to verbal stimuli; alert and oriented, PERRLA. Airway - Unaffected, no intervention required; spontaneous ventilation. Circulation: W/N/L, pulses unchanged. Nausea/Vomiting: No. Procedure completed. Patient transferred by wheelchair to CPRU. Vital chart was stopped. Access Site Site: Right Radial artery Sheath Size: 6 Fr Hemostasis Method: TR Band Hemostasis Success: Successful Procedure Medications Start: 6:14 AM Stop: 6:14 AM Medication: Versed Amount: 1 mg Route: I.V. Start: 6:14 AM Stop: 6:14 AM Medication: Fentanyl Amount: 50 mcg Route: I.V. Start: 6:15 AM Stop: 6:15 AM Medication: Versed Amount: 1 mg Route: I.V. Start: 6:21 AM Stop: 6:21 AM Medication: Versed 1 mg and Fentanyl 25 mcg Amount: 1 Route: I.V. Start: 6:22 AM Stop: 6:22 AM Medication: Nitrogylcerin Amount: 200 mcg Route: I.A. Start: 6:22 AM Stop: 6:22 AM Medication: Verapamil Amount: 5 mg Route: I.A. Start: 6:24 AM Stop: 6:24 AM Medication: Heparin Amount: 4000 units Route: I.V. Start: 6:28 AM Stop: 6:28 AM Medication: Versed Amount: 1 mg Route: I.V. I, the attending physician, have reviewed and verified all procedure medications. Yes, all medications given per verbal order History/Risk Factors Hypertension: Yes Dyslipidemia: Yes Peripheral Arterial Disease (PAD): No Myocardial Infarction (ID): No Obesity: No Renal Disease: No Tobacco Use: Current/Recent(w/in 1 year) Prior Interventions PCI: No CABG: No Valve Surgery: No Report Signatures Finalized by Dr Danyell Marrero MD [facility] on 03/10/2022 08:22 PM
--- NOTE | 2022-03-10 06:06 | W.PM.OPSUD ---
Surgery/Procedure H&P Update DATE OF PROCEDURE: March 10, 2022 DATE H&P PERFORMED: 03/08/22 H&P UPDATE INFORMATION: I have reviewed H&P completed within last 30 days, I have examined patient prior to procedure and No changes to prior documentation PREOP DIAGNOSIS: ASHD PRIMARY INDICATION FOR PROCEDURE: Chest pain/multiple risk factors for CAD/abnormal myocardial perfusion scan PLANNED PROCEDURE: Operation Date: 03/10/22 06:00 Proposed Procedures p Cardiac Catheterization(Left) - Danyell Marrero MD PATIENT REASSESSED PRIOR TO SEDATION, WITH NO CHANGE NOTED: Yes PHYSICAL EXAM: alert, oriented x 3, clear to auscultation bilaterally and regular rate & rhythm AIRWAY EVAL/ANESTHESIA PLAN: normal airway, see other exam findings, ASA II, Monitored Anesthesia, Local Anesthesia, Risks, benefits & alternatives of sedation and/or procedure discussed and Patient agrees to continue as planned
--- NOTE | 2022-03-10 07:08 | PC.NURSE ---
received pt from labor relations officer post [facility]. pt is loopy per pt. pt complains of no pain. tr band on place on right wrist. pt educated on restrictions and stated understanding. will continue to educated throughout recovery. pt placed on monitored and will be observed per protocol.
--- NOTE | 2022-03-10 07:40 | PC.NURSE ---
received from cardiac labor utilization superintendent at 0720.report received.pt is alert and awake and oriented x 4.sr on monitor.denies pain at present.oriented to room environment.right wrist with tr band on and inflated.right hand is warm to touch and with brisk capillary refill.palpable radial pulse noted distal to tr band .no hematoma noted.pt instructed in activity restrictions s/p radial artery procedure...and instructed to notify staff for any bleeding,numbness,bruising,cp,sob...or for any concerns at all.pt verb understanding of instructions.pt c/o tenderness at left antecubital area..where iv recently discontinued.warm pack applied.
--- NOTE | 2022-03-10 08:06 | P.PN_ITS ---
Vitals/I&O/Wt Last Vital Signs Temp 98.1 F 03/10/22 08:03 Pulse 73 03/10/22 08:03 Resp 20 H 03/10/22 08:03 BP 130/90 03/10/22 08:03 Pulse Ox 96 03/10/22 08:03 03/09/22 03/10/22 03/10/22 22:59 06:59 14:59 Intake Total 818.3 / 1414.250 Output Total 880 / 1280 Balance -61.7 / 134.250 Weight last 48 hrs Weight 77.111 kg Data : 03/10/22 02:50 03/10/22 02:50 Coding Level of Care Code Acute Special Forces Engineer Sergeant for Chg Diana
[2022-03-10 08:48] LABS: Add Urine Microscopic? NO; Charge for UA Resulting for Rev
[2022-03-10] MEDS: lisinopril 20 mg Tablet 40 MG PO (08:49)
[2022-03-10] MEDS: lidocaine 2% viscous 15 ML, aluminum-mag hydrox-simethicon 30 ML, sucralfate oral liq 1 GM PO (08:49)
[2022-03-10] MEDS: pantoprazole DR 40 mg Tablet PO ×2 (08:49→17:36)
[2022-03-10] MEDS: aspirin 81 mg EC Tablet PO (08:49)
[2022-03-10 09:04] LABS: Bilirubin Urine Neg (Negative); Blood Urine Neg (Negative); Glucose Urine UA Norm (Normal); Ketones Urine Negative (Negative); Leukocyte Esterase Urine Negative (Negative); Nitrate Urine Negative (Negative); Protein Urine Neg (Negative); Specific Gravity, Urine 1.005 (1.005-1.030); Urine Appearance Clear (CLEAR); Urine Color Yellow (Yellow); Urobilinogen Urine Norm (Negative); pH Urine 7 (5-7)
[2022-03-10 09:18] LABS: Amphetamines Screen Urine Negative (Negative); Barbiturates Screen Urine Negative (Negative); Benzodiazepines Screen Urine Negative (Negative); Cocaine Screen Urine Negative (Negative); Opiate Screen Urine Positive (Negative); PCP Screen Urine Negative (Negative); THC Screen Urine Negative (Negative)
--- NOTE | 2022-03-10 11:21 | P.DS_ITS ---
Discharge Providers Date of Admission: 03/08/22 14:19 Date of Discharge: March 10, 2022 Attending Provider at Admission: Blanquita Carreno MD Attending Provider at Discharge: Blanquita Carreno MD Primary Care Provider: ESTELLE Lynn Diagnoses at Discharge Discharge Diagnosis (1) Chest pain: Status: Acute (2) Hypertensive urgency: Status: Acute (3) Alcohol abuse: Status: Acute (4) Smoking addiction: Status: Acute (5) Dyslipidemia: Status: Acute Reason for Visit Reason for Visit: HTN Discharge Data Studies Completed and Pending Completed Studies During Hospitalization Category Date Time Status CTA chest [CT angio chest [id number]] Stat Cat Scan 03/09/22 10:12 Completed Cardiac Stress Test MIBI [Sestamibi Stress Test Request Exams 03/09/22 00:35 Completed ] Routine XR chest 1V portable [id number] Stat Exams 03/08/22 13:09 Completed NM gris perf SPECT r/s* [id number] Routine Nuc Med 03/09/22 00:36 Completed CV. 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 Chest CTA 03/09/22 10:12 IMPRESSION: 1. Normal caliber thoracic aorta. No evidence of aortic dissection. Normal caliber descending thoracic aorta. 2. No acute pulmonary infiltrates. No focal pneumonia or pleural fluid. 3. No mediastinal or hilar lymphadenopathy. 4. No acute chest findings. Laboratory Results WBC 8.3 10^3/uL (4.0-10.0) 03/10/22 02:50 RBC 4.75 10^6/uL (4.1-5.3) 03/10/22 02:50 Hgb 15.2 g/dL (11.7-16.6) 03/10/22 02:50 Hct 44.2 % (42.0-52.0) 03/10/22 02:50 MCV 93.1 fl (80-94) 03/10/22 02:50 MCH 32.0 pg (28.0-34.0) 03/10/22 02:50 MCHC 34.4 g/dL (30.0-36.0) 03/10/22 02:50 RDW 13.7 % (12.1-15.1) 03/10/22 02:50 Plt Count 146 10^3/cmm (130-400) 03/10/22 02:50 MPV 11.6 fL (7.4-10.4) H 03/10/22 02:50 Neut % (Auto) 42.5 % 03/10/22 02:50 Lymph % (Auto) 44.5 % 03/10/22 02:50 [place] % (Auto) 9.6 % 03/10/22 02:50 Eos % (Auto) 2.5 % 03/10/22 02:50 Baso % (Auto) 0.7 % 03/10/22 02:50 Neut # (Auto) 3.54 10^3/uL (1.8-7.7) 03/10/22 02:50 Lymph # (Auto) 3.7 10^3/uL (0.8-4.8) 03/10/22 02:50 [place] # (Auto) 0.8 10^3/uL (0.2-0.9) 03/10/22 02:50 Eos # (Auto) 0.2 10^3/uL (0.0-0.8) 03/10/22 02:50 Baso # (Auto) 0.1 10^3/uL (0.0-0.1) 03/10/22 02:50 Nucleated RBC % (auto) 0 % 03/10/22 02:50 Nucleated RBCs # 0.0 /100WBC 03/10/22 02:50 Sodium 138 mmol/L (136-145) 03/10/22 02:50 Potassium 3.8 mmol/L (3.5-5.1) 03/10/22 02:50 Chloride 103 mmol/L (98-107) 03/10/22 02:50 Carbon Dioxide 24 mmol/L (22-29) 03/10/22 02:50 Anion Gap 14.8 (5-19) 03/10/22 02:50 BUN 12 mg/dL (6-20) 03/10/22 02:50 Creatinine 0.9 mg/dL (0.7-1.2) 03/10/22 02:50 GFR Calculation 89.3 mL/min (90-130) L 03/10/22 02:50 Glucose 105 mg/dL (65-115) 03/10/22 02:50 Estimat Average Glucose 105 03/08/22 13:10 Hemoglobin A1c 5.3 % (4.0-6.0) 03/08/22 13:10 Calculated Osmolality 286 mOsm/kg (285-295) 03/10/22 02:50 Calcium 9.5 mg/dL (8.5-10.5) 03/10/22 02:50 Phosphorus 4.7 mg/dL (2.5-4.5) H 03/09/22 04:55 Magnesium 2.1 mg/dL (1.7-2.3) 03/10/22 02:50 Total Bilirubin 0.5 mg/dL (0.15-1.2) 03/09/22 04:55 AST 42 U/L (0-40) H 03/09/22 04:55 ALT 57 U/L (0-41) H 03/09/22 04:55 Alkaline Phosphatase 84 IU/L (40-130) 03/09/22 04:55 Troponin T Baseline 6 ng/L (0-15) 03/08/22 13:10 Troponin T 120 Minute 6.45 ng/L (0-15) 03/08/22 14:58 Delta Troponin T 0.45 ABS# (0-10) 03/08/22 14:58 Troponin T Hi Sens 6Hr 7.59 ng/L (0-15) 03/08/22 19:56 Troponin T Hi Sens 6Hr Delta 1.59 ng/L (0-12) 03/08/22 19:56 NT-Pro-B Natriuret Pep 106 pg/mL (0-125) 03/08/22 13:10 Total Protein 6.4 g/dL (6.6-8.7) L 03/09/22 04:55 Albumin 3.8 g/dL (3.5-5.2) 03/09/22 04:55 Globulin 2.6 g/dL (1.3-4.6) 03/09/22 04:55 Triglycerides 137 mg/dL (0-150) 03/08/22 13:10 Cholesterol 301 mg/dL (0-200) H 03/08/22 13:10 LDL Cholesterol, Calc 231 mg/dL (50-129) H 03/08/22 13:10 HDL Cholesterol 43 mg/dL (60-100) L 03/08/22 13:10 LDL/HDL Ratio 5.37 RATIO (0.00-3.22) H 03/08/22 13:10 Cholesterol/HDL Ratio 7.00 mg/dL (1.0-5.00) H 03/08/22 13:10 Lipase 13 U/L (13-60) 03/09/22 05:05 Procalcitonin 0.06 ng/mL (0-0.5) 03/08/22 13:10 TSH 1.10 uIU/mL (0.27-4.20) 03/08/22 13:10 Urine Color Yellow (Yellow) 03/10/22 08:19 Urine Appearance Clear (CLEAR) 03/10/22 08:19 Urine pH 7 (5-7) 03/10/22 08:19 Ur Specific [place] 1.005 (1.005-1.030) 03/10/22 08:19 Urine Protein Neg (Negative) 03/10/22 08:19 Urine Glucose (UA) Norm (Normal) 03/10/22 08:19 Urine Ketones Negative (Negative) 03/10/22 08:19 Urine Blood Neg (Negative) 03/10/22 08:19 Urine Nitrate Negative (Negative) 03/10/22 08:19 Urine Bilirubin Neg (Negative) 03/10/22 08:19 Urine Urobilinogen Norm mg/dL (Negative) 03/10/22 08:19 Ur Leukocyte Esterase Negative (Negative) 03/10/22 08:19 Urine Opiates Screen Positive ng/mL (Negative) H 03/10/22 08:19 Ur Barbiturates Screen Negative ng/mL (Negative) 03/10/22 08:19 Ur Phencyclidine Scrn Negative ng/mL (Negative) 03/10/22 08:19 Ur Amphetamines Screen Negative ng/mL (Negative) 03/10/22 08:19 U Benzodiazepines Scrn Negative ng/mL (Negative) 03/10/22 08:19 Urine Cocaine Screen Negative ng/mL (Negative) 03/10/22 08:19 U Marijuana (THC) Screen Negative ng/mL (Negative) 03/10/22 08:19 Vitals Last Vital Signs Temp 98.1 F 03/10/22 08:03 Pulse 62 03/10/22 10:15 Resp 15 03/10/22 10:15 BP 128/86 03/10/22 10:15 Pulse Ox 98 03/10/22 10:15 Discharge Plan Discharge Patient Disposition: Home Condition: Stable Prescriptions: No Action albuterol sulfate [Ventolin HFA] 90 mcg/actuation HFA aerosol inhaler 1 inh inhalation Q6H PRN (Reason: shortness of breath or wheezing) Qty: 8.5 2RF Spiriva Respimat 1.25 mcg/actuation mist 2 puff inhalation DAILY Qty: 4 0RF budesonide-formoterol [Symbicort] 160-4.5 mcg/actuation HFA aerosol inhaler 2 inh inhalation BID 30 Days Qty: 10.2 2RF Rx Instructions: Rinse mouth well after each dosing lisinopril 10 mg Tablet 10 mg PO DAILY 0RF ibuprofen 200 mg Tablet 1,200 mg PO Q6H PRN (Reason: Pain) 0RF Referrals: ERNESTO Del Valle, HEAD TRACK COACH [Primary Care Provider] - Patient Instructions: Opioid Safety Coding Level of Care Code Acute g [facility] note Diagnoses Chest pain R07.9 Hypertensive urgency I16.0 Alcohol abuse F10.10 Smoking addiction F17.200 Dyslipidemia E78.5
--- NOTE | 2022-03-10 12:26 | PC.NURSE ---
manual cuff bp approx 10-15 points lower than [place] reading
--- NOTE | 2022-03-10 12:42 | PC.OT ---
OT EVALUATION ORDERS RECEIVED FOR ROM TEACHING: ARM DANGLE, WALL WALK AND RTC. THIS PATIENT DID NOT HAVE PACEMAKER PLACED. I CALLED DR KELLY AND HE STATED THAT THIS WAS ORDERED IN ERROR AND THE THE PATIENT DID NOT NEED THIS EVALUATION.
--- NOTE | 2022-03-10 13:44 | P.PN_ITS ---
Subjective Subjective: Seen this morning. Seen after angiogram. Minimal disease noted. Official report pending. No intervention done. Patient's blood pressure is still uncontrolled 166/113. Vitals/I&O/Wt Last Vital Signs Temp 98.1 F 03/10/22 08:03 Pulse 70 03/10/22 12:15 Resp 19 H 03/10/22 12:15 BP 166/113 03/10/22 12:15 Pulse Ox 98 03/10/22 12:15 03/09/22 03/10/22 03/10/22 22:59 06:59 14:59 Intake Total 818.3 / 1414.250 840 / 840 Output Total 880 / 1280 175 / 175 Balance -61.7 / 134.250 665 / 665 Physical Exam Narrative: General: Alert oriented x3, patient seen sitting up in bed appearing comfortable.? Cardio: Regular rate rhythm, normal S1-S2, no gross murmurs are evident at this time. Respiratory: Good bilateral air entry, mild rhonchi at bases, GI: Abdomen soft, nontender, nondistended, bowel sounds + Extremities: Trace lower extremity edema bilaterally, no cyanosis Data : 03/10/22 02:50 03/10/22 02:50 A&P Assessment and plan (1) Dyslipidemia: Status: Acute (2) Smoking addiction: Status: Acute (3) Alcohol abuse: Status: Acute (4) Alcohol use: Status: Acute (5) Hypertensive urgency: Status: Acute (6) Chest pain: Status: Acute (7) COPD (chronic obstructive pulmonary disease): Status: Acute (8) Alcohol withdrawal: Status: Acute Plan #Chest pain, probably GI related. Cardiac cause ruled out. 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 Hemoglobin A1c 5.3.? Lipid profile very abnormal.? Cholesterol 301, LDL 231, HDL 43. ? Stop aspirin Plavix therapeutic Lovenox. Continue on atorvastatin 40 daily ? Stop nitro drip. Blood pressure still elevated. Continue with lisinopril 40 daily. We will add hydralazine 25 3 times daily. ? Patient underwent cath which showed minimal disease. No intervention done. ? Cardiology on board. Recommendations appreciated. ? CTA chest ruled out aortic dissection.? Lipase 13.? Ruled out pancreatitis. -Started on Protonix 40 twice daily. Give one-time dose of GI cocktail to see if improvement in chest pain. - Hepatitis panel pending. - last drink was: tuesday night: march 07 - [facility] protocol Full code Attestations Medical Necessity Statement*: Patient will need to stay for greater than 24 hours due to uncontrolled high blood pressure. His medications will need to be optimized from blood pressure aspect. Potential discharge in a.m. Coding Level of Care Code Acute Energy Economist for [facility] Fwd Diagnoses Dyslipidemia E78.5 Smoking addiction F17.200 Alcohol abuse F10.10 Alcohol use Z72.89 Hypertensive urgency I16.0 Chest pain R07.9 COPD (chronic obstructive pulmonary disease) J44.9 Alcohol withdrawal F10.239
[2022-03-10] MEDS: hyDRALAzine 25 mg Tablet PO ×2 (14:06→17:36)
--- NOTE | 2022-03-10 14:13 | PC.NURSE ---
tr band slowly deflated and finally removed at 1300.site dressed with 2x2 gauze and secured with biocclusive drsg.right hand remains warm to touch and with brisk capillary refill.no hematoma formation noted.palpable radial pulse noted.instructed pt in activity restrictions s/p tr band removal..and instructed to notify staff for any bleeding,pain,numbness..or for any concerns at all.pt verb understanding of instructions.
--- NOTE | 2022-03-10 14:24 | PC.NURSE ---
pt's bp has been erratic post cath.dr fuentes aware and has ordered hydralazine in addition to lisinopril.
--- NOTE | 2022-03-10 15:19 | PC.NURSE ---
report phoned to mallorie anna .pt transferred back to room 276-1 via w/c.
--- NOTE | 2022-03-10 19:02 | P.PN_ITS ---
Subjective Subjective: He underwent a cardiac catheterization today. He was found to have mild to moderate diffuse coronary artery disease. Based on the angiogram findings, it was decided to treat her medically. Medications: Medication Review Details: Current Medications Acetaminophen (Acetaminophen 325 Mg Tablet) 650 mg PO Q6H PRN PRN Reason: MILD PAIN Al Hydrox/Mg Hydrox/Simethicone (Kaqz-Awt-Bcixfsukh-Alice 30 Ml Udc) 30 ml PO Q15M PRN PRN Reason: INDIGESTION Hydralazine HCl (Hydralazine 25 Mg Tablet) 50 mg PO TID [facility] Sodium Chloride (Sodium Chloride 0.9%) 1,000 mls @ 50 mls/hr IV .Q20H ONE Stop: 03/11/22 01:59 Last Admin: 03/10/22 05:00 Dose: 50 mls/hr Documented by: Lisinopril (Lisinopril 20 Mg Tablet) 40 mg PO DAILY [facility] Last Admin: 03/10/22 08:49 Dose: 40 mg Documented by: Magnesium Hydroxide (Magnesium Hydroxide 30 Ml Udc) 30 ml PO DAILY PRN PRN Reason: CONSTIPATION Morphine Sulfate (Morphine 4 Mg/Ml Sdv 1 Ml) 2 mg IVP Q4H PRN PRN Reason: SEVERE PAIN Last Admin: 03/10/22 00:18 Dose: 2 mg Documented by: Ondansetron HCl (Ondansetron 2 Mg/Ml Sdv 2 Ml) 4 mg IVP Q8H PRN PRN Reason: vomiting, or N/V if npo Pantoprazole Sodium (Pantoprazole Dr 40 Mg Tablet) 40 mg PO BID [facility] Last Admin: 03/10/22 17:36 Dose: 40 mg Documented by: Vitals/I&O/Wt Last Vital Signs Temp 97.9 F 03/10/22 15:25 Pulse 78 03/10/22 15:48 Resp 17 03/10/22 15:48 BP 163/105 03/10/22 15:48 Pulse Ox 98 03/10/22 15:48 03/10/22 03/10/22 03/10/22 06:59 14:59 22:59 Intake Total 840 / 840 236 / 1076 Output Total 175 / 175 Balance 665 / 665 236 / 901 Physical Exam Narrative: GENERAL: The patient is alert and oriented times three. Not in any acute distress. HEENT: No significant pallor, icterus or lymphadenopathy.Oral cavity: There are no mucous membrane lesions. NECK: Trachea appears to be central. No masses noted. No JVD or thyromegaly appreciated. RESPIRATORY: Chest is symmetrical. No intercostals muscle retraction or any accessory muscle activation. There is no chest wall tenderness. Breath sounds are heard bilaterally. No rales or rhonchi heard. No evidence of any consolidation. BREASTS: Deferred. HEART: The heart sounds are normal. No S3 or S4. No significant murmurs. No pericardial rub ABDOMEN: No vessel pulsations or distention. No tenderness. No organomegaly appreciated. Bowel sounds are normally heard. : Deferred. RECTAL: Deferred. LYMPHATIC: No lymphadenopathy noted in the neck. EXTREMITIES: The right radial artery puncture site has no hematoma or bleeding. MUSCULOSKELETAL: No acute joint deformities or swelling SKIN: There are no significant rashes or ecchymosis NEUROPSYCHIATRIC: The patient is alert and oriented x3. Appears to be in a good mood. No tremors or rigidity noted. Data : 03/10/22 02:50 03/10/22 02:50 A&P Assessment and plan (1) Chest pain: Most likely noncardiac. Small vessel disease, left ventricular diastolic dysfunction, also could be contributing factors. Status: Acute (2) Hypertensive urgency: Patient is her diastolic blood pressure runs in the 110s to 120s. I may add amlodipine 5 mg p.o. now and daily along with isosorbide mononitrate 30 mg p.o. now and daily to the current regimen. His blood pressure needs to be closely monitored on telemetry. Status: Acute (3) Alcohol abuse: Patient seems to be doing okay without alcohol so far. He is planning to quit Status: Acute (4) Smoking addiction: Patient is strongly advised to quit smoking. Cardiovascular implications were discussed. 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 We will try to optimize his medical treatment. He is strongly advised to quit smoking and drinking. Status: Acute Plan The other problems are Erythrocytosis-possibly from smoking COPD GERD Elevated liver enzymes Emergency blood pressure gets under control, will be discharged home from a cardiac standpoint. 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
[2022-03-10] MEDS: amlodipine 5 mg Tablet PO (19:24)
[2022-03-10] MEDS: isosorbide mononitrate ER 60 mg Tablet PO (19:24)
[2022-03-10 20:13] LABS: Hepatitis A Antibody IgM Non-Reactive (Nonreactive); Hepatitis B Core AB, Total Non-Reactive (Nonreactive); Hepatitis B Surface AB 3.5 (11.5-1000); Hepatitis B Surface Antigen Non-Reactive (Nonreactive); Hepatitis C Virus Antibody Non-Reactive (Nonreactive)
[2022-03-10] MEDS: hyDRALAzine 25 mg Tablet 50 MG PO (20:31)
[2022-03-10] MEDS: acetaminophen 325 mg Tablet 650 MG PO (22:21)
[2022-03-11] VITALS (7 sets, daily range): BP systolic 124–141; BP diastolic 81–98; PULSE 61–83; RESP 16–21; TEMP 36.4–36.5; O2SAT 93–95
--- NOTE | 2022-03-11 02:01 | PC.NURSE ---
Patient is c/o of severe headache 06/28 last BP 129/94. He is hear for HTN. Tylenol and morphine has been given as ordered and documented. Spoke with Dr Pfeiffer and received onetime order for Percocet 5/325 PO. RBVO
[2022-03-11] MEDS: oxyCODONE-APAP 5-325 mg Tablet 1 TAB PO (02:05)
[2022-03-11 04:35] LABS: Blood Urea Nitrogen 13 mg/dL (6-20); Calcium 8.8 mg/dL (8.5-10.5); Carbon Dioxide 24 mmol/L (22-29); Chloride 103 mmol/L (98-107); Glomerular Filtration Rate 102.3 mL/min (90-130); Glucose 90 mg/dL (65-115); Osmolality Calculated 286 mOsm/kg (285-295); Sodium 138 mmol/L (136-145)
[2022-03-11 05:18] LABS: Anion Gap 15.2 (5-19); Potassium 4.2 mmol/L (3.5-5.1)
[2022-03-11] MEDS: acetaminophen 325 mg Tablet 650 MG PO (07:38)
[2022-03-11] MEDS: hyDRALAzine 25 mg Tablet 50 MG PO (09:22)
[2022-03-11] MEDS: lisinopril 20 mg Tablet 40 MG PO (09:22)
[2022-03-11] MEDS: isosorbide mononitrate ER 60 mg Tablet PO (09:23)
[2022-03-11] MEDS: amlodipine 5 mg Tablet PO (09:23)
[2022-03-11] MEDS: pantoprazole DR 40 mg Tablet PO (09:23)
--- NOTE | 2022-03-11 11:22 | PM.DCS ---
Discharge Providers Date of Admission: 03/08/22 14:19 Date of Discharge: March 11, 2022 Attending Provider at Admission: Blanquita Carreno MD Attending Provider at Discharge: Blanquita Carreno MD Primary Care Provider: ESTELLE Lynn Diagnoses at Discharge Discharge Diagnosis (1) Chest pain: Status: Acute (2) Hypertensive urgency: Status: Acute (3) Alcohol abuse: Status: Acute (4) Smoking addiction: Status: Acute (5) Dyslipidemia: Status: Acute (6) Atherosclerotic heart disease of [place] coronary artery with other forms of angina pectoris: Status: Acute Reason for Visit Reason for Visit: HTN Brief History: Brent Hernández is a 51 year old male with past medical history of hypertension hyperlipidemia, COPD, GERD, polycythemia presented to the hospital today with chest pain.? He states the chest pain is increasing in intensity and frequency.? He was also hypertensive upon arriving to the ER.? He received aspirin and nitro in route which relieved the pain.? His pain has been going on for the last 4 to 5 months.? He says he has these episodes that last few seconds to several minutes and then the pain gradually goes away.? Patient's pain also radiates to the back.? Both his parents had an NM during their lifetime.? Mother had in her 40s and father had it in his 60s.? He does drink 6 to 8 packs of alcohol a day and has been drinking for the last 30 years.? He also smokes 2 packs of cigarettes for the last 30 years. ? patient also has elevated liver enzymes.? For his polycythemia he has seen Dr. 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 First troponin is 6.? Patient has been given therapeutic Lovenox and started on nitro drip by ER.? Patient has not have her had a cardiac work-up done before.? On albuterol inhaler and Symbicort at home.? Lisinopril 10 mg daily. Hospital Course Hospital Course Presented with chest pain with a very cardiac nature. He had very abnormal lipid profile. Patient stated that he could not afford to buy medications and has not taking anything for his blood pressure either. Patient Did End up Going for cath after being on nitro drip for quite some time and minimal disease was found. Blood pressure was still uncontrolled and he was started on medications. He was placed on Protonix 40 twice daily for 30 days for possible GI related pain. Had a long discussion with him and advised him to follow-up with his primary care doctor for further work-up. He was given meds to beds and to follow-up within 4 to 7 days with his primary care doctor. Physical Exam Narrative: General: Alert oriented x3, patient seen sitting up in bed appearing comfortable.? Cardio: Regular rate rhythm, normal S1-S2, no gross murmurs are evident at this time. Respiratory: Good bilateral air entry, mild rhonchi at bases, GI: Abdomen soft, nontender, nondistended, bowel sounds + Extremities: Trace lower extremity edema bilaterally, no cyanosis Discharge Data Studies Completed and Pending Completed Studies During Hospitalization Category Date Time Status CTA chest [CT angio chest [id number]] Stat Cat Scan 03/09/22 10:12 Completed [employer] request for service Routine Exams 03/10/22 05:23 Completed Cardiac Stress Test MIBI [Sestamibi Stress Test Request Exams 03/09/22 00:35 Completed ] Routine XR chest 1V portable [id number] Stat Exams 03/08/22 13:09 Completed NM gris perf SPECT r/s* [id number] Routine Nuc Med 03/09/22 00:36 Completed CV. echo complete* [id number] Routine Ultrasound 03/08/22 16:58 Completed Radiology Impressions Chest X-Ray 03/08/22 13:09 IMPRESSION: Unremarkable chest radiograph. Chest CTA 03/09/22 10:12 IMPRESSION: 1. Normal caliber thoracic aorta. No evidence of aortic dissection. Normal caliber descending thoracic aorta. 2. No acute pulmonary infiltrates. No focal pneumonia or pleural fluid. 3. No mediastinal or hilar lymphadenopathy. 4. No acute chest findings. Laboratory Results WBC 8.3 10^3/uL (4.0-10.0) 03/10/22 02:50 RBC 4.75 10^6/uL (4.1-5.3) 03/10/22 02:50 Hgb 15.2 g/dL (11.7-16.6) 03/10/22 02:50 Hct 44.2 % (42.0-52.0) 03/10/22 02:50 MCV 93.1 fl (80-94) 03/10/22 02:50 MCH 32.0 pg (28.0-34.0) 03/10/22 02:50 MCHC 34.4 g/dL (30.0-36.0) 03/10/22 02:50 RDW 13.7 % (12.1-15.1) 03/10/22 02:50 Plt Count 146 10^3/cmm (130-400) 03/10/22 02:50 MPV 11.6 fL (7.4-10.4) H 03/10/22 02:50 Neut % (Auto) 42.5 % 03/10/22 02:50 Lymph % (Auto) 44.5 % 03/10/22 02:50 [place] % (Auto) 9.6 % 03/10/22 02:50 Eos % (Auto) 2.5 % 03/10/22 02:50 Baso % (Auto) 0.7 % 03/10/22 02:50 Neut # (Auto) 3.54 10^3/uL (1.8-7.7) 03/10/22 02:50 Lymph # (Auto) 3.7 10^3/uL (0.8-4.8) 03/10/22 02:50 [place] # (Auto) 0.8 10^3/uL (0.2-0.9) 03/10/22 02:50 Eos # (Auto) 0.2 10^3/uL (0.0-0.8) 03/10/22 02:50 Baso # (Auto) 0.1 10^3/uL (0.0-0.1) 03/10/22 02:50 Nucleated RBC % (auto) 0 % 03/10/22 02:50 Nucleated RBCs # 0.0 /100WBC 03/10/22 02:50 Sodium 138 mmol/L (136-145) 03/11/22 03:34 Potassium 4.2 mmol/L (3.5-5.1) 03/11/22 03:34 Chloride 103 mmol/L (98-107) 03/11/22 03:34 Carbon Dioxide 24 mmol/L (22-29) 03/11/22 03:34 Anion Gap 15.2 (5-19) 03/11/22 03:34 BUN 13 mg/dL (6-20) 03/11/22 03:34 Creatinine 0.8 mg/dL (0.7-1.2) 03/11/22 03:34 GFR Calculation 102.3 mL/min (90-130) 03/11/22 03:34 Glucose 90 mg/dL (65-115) 03/11/22 03:34 Estimat Average Glucose 105 03/08/22 13:10 Hemoglobin A1c 5.3 % (4.0-6.0) 03/08/22 13:10 Calculated Osmolality 286 mOsm/kg (285-295) 03/11/22 03:34 Calcium 8.8 mg/dL (8.5-10.5) 03/11/22 03:34 Phosphorus 4.7 mg/dL (2.5-4.5) H 03/09/22 04:55 Magnesium 2.1 mg/dL (1.7-2.3) 03/10/22 02:50 Total Bilirubin 0.5 mg/dL (0.15-1.2) 03/09/22 04:55 AST 42 U/L (0-40) H 03/09/22 04:55 ALT 57 U/L (0-41) H 03/09/22 04:55 Alkaline Phosphatase 84 IU/L (40-130) 03/09/22 04:55 Troponin T Baseline 6 ng/L (0-15) 03/08/22 13:10 Troponin T 120 Minute 6.45 ng/L (0-15) 03/08/22 14:58 Delta Troponin T 0.45 ABS# (0-10) 03/08/22 14:58 Troponin T Hi Sens 6Hr 7.59 ng/L (0-15) 03/08/22 19:56 Troponin T Hi Sens 6Hr Delta 1.59 ng/L (0-12) 03/08/22 19:56 NT-Pro-B Natriuret Pep 106 pg/mL (0-125) 03/08/22 13:10 Total Protein 6.4 g/dL (6.6-8.7) L 03/09/22 04:55 Albumin 3.8 g/dL (3.5-5.2) 03/09/22 04:55 Globulin 2.6 g/dL (1.3-4.6) 03/09/22 04:55 Triglycerides 137 mg/dL (0-150) 03/08/22 13:10 Cholesterol 301 mg/dL (0-200) H 03/08/22 13:10 LDL Cholesterol, Calc 231 mg/dL (50-129) H 03/08/22 13:10 HDL Cholesterol 43 mg/dL (60-100) L 03/08/22 13:10 LDL/HDL Ratio 5.37 RATIO (0.00-3.22) H 03/08/22 13:10 Cholesterol/HDL Ratio 7.00 mg/dL (1.0-5.00) H 03/08/22 13:10 Lipase 13 U/L (13-60) 03/09/22 05:05 Procalcitonin 0.06 ng/mL (0-0.5) 03/08/22 13:10 TSH 1.10 uIU/mL (0.27-4.20) 03/08/22 13:10 Urine Color Yellow (Yellow) 03/10/22 08:19 Urine Appearance Clear (CLEAR) 03/10/22 08:19 Urine pH 7 (5-7) 03/10/22 08:19 Ur Specific [place] 1.005 (1.005-1.030) 03/10/22 08:19 Urine Protein Neg (Negative) 03/10/22 08:19 Urine Glucose (UA) Norm (Normal) 03/10/22 08:19 Urine Ketones Negative (Negative) 03/10/22 08:19 Urine Blood Neg (Negative) 03/10/22 08:19 Urine Nitrate Negative (Negative) 03/10/22 08:19 Urine Bilirubin Neg (Negative) 03/10/22 08:19 Urine Urobilinogen Norm mg/dL (Negative) 03/10/22 08:19 Ur Leukocyte Esterase Negative (Negative) 03/10/22 08:19 Urine Opiates Screen Positive ng/mL (Negative) H 03/10/22 08:19 Ur Barbiturates Screen Negative ng/mL (Negative) 03/10/22 08:19 Ur Phencyclidine Scrn Negative ng/mL (Negative) 03/10/22 08:19 Ur Amphetamines Screen Negative ng/mL (Negative) 03/10/22 08:19 U Benzodiazepines Scrn Negative ng/mL (Negative) 03/10/22 08:19 Urine Cocaine Screen Negative ng/mL (Negative) 03/10/22 08:19 U Marijuana (THC) Screen Negative ng/mL (Negative) 03/10/22 08:19 Hepatitis A IgM Ab Non-reactive (Nonreactive) 03/10/22 18:15 Hep Bs Antigen Non-reactive (Nonreactive) 03/10/22 18:15 Hep Bs Antibody 3.5 (11.5-1000) L 03/10/22 18:15 Hep B Core Total Ab Non-reactive (Nonreactive) 03/10/22 18:15 Hepatitis C Antibody Non-reactive (Nonreactive) 03/10/22 18:15 Vitals Last Vital Signs Temp 97.6 F 03/11/22 11:07 Pulse 62 03/11/22 11:07 Resp 21 H 03/11/22 04:00 BP 141/98 03/11/22 11:07 Pulse Ox 94 03/11/22 11:07 Discharge Plan Discharge Patient Disposition: Home Condition: Stable Prescriptions: New pantoprazole 40 mg Tablet,Delayed Release (Dr/Ec) 40 mg PO BID 30 Days Qty: 60 0RF lisinopril 40 mg tablet 40 mg PO DAILY 30 Days Qty: 30 0RF hydralazine 25 mg Tablet 50 mg PO TID 30 Days Qty: 180 0RF amlodipine 5 mg Tablet 5 mg PO DAILY 30 Days Qty: 30 0RF isosorbide mononitrate 60 mg Tablet Extended Release 24 Hr 60 mg PO DAILY 30 Days Qty: 30 0RF Continued Ventolin HFA 90 mcg/actuation HFA aerosol inhaler 1 inh inhalation Q6H PRN (Reason: shortness of breath or wheezing) 30 Days Qty: 8.5 2RF Symbicort 160-4.5 mcg/actuation HFA aerosol inhaler 2 inh inhalation BID 30 Days Qty: 10.2 2RF Rx Instructions: Rinse mouth well after each dosing Spiriva Respimat 1.25 mcg/actuation mist 2 puff inhalation DAILY 30 Days Qty: 4 0RF Discontinued lisinopril 10 mg Tablet 10 mg PO DAILY 0RF ibuprofen 200 mg Tablet 1,200 mg PO Q6H PRN (Reason: Pain) 0RF Discharge Orders: Discharge Order (Routine); Ordered 03/11/22 Ordered By: Blanquita Carreno Referrals: Danyell Marrero MD [Physician] - 04/27/22 11:15 am ERNESTO Del Valle FNP [Primary Care Provider] - 03/15/22 10:00 Lili Weeks FNP [Nurse Practitioner] - 03/24/22 3:00 pm Discharge Diet: Cardiac and Low Salt Discharge Activity: Resume usual activity Patient Instructions: Lisinopril (By mouth), Hydralazine (By mouth), Amlodipine (By mouth), Isosorbide Mononitrate (By mouth) (Imdur, Imdur ER, Ismo), Pantoprazole (By mouth), Chest Pain (DC), COPD (Chronic Obstructive Pulmonary Disease) (DC), Chronic Hypertension (DC), Opioid Safety Activity Restrictions/Additional Instructions: Please return to ER if increasing shortness of breath, chest pain or your blood pressure is uncontrolled > 180 systolic despite taking medications. Please follow up with your primary care doctor as soon as possible. Discharge Attestations Time Spent in Discharge Care*: less than 30 min Quality Metrics Clinical Quality Measures [ No reported AMI, CVA or VTE this stay] Coding Level of Care Code Acute Chg FW DC note Diagnoses Chest pain R07.9 Hypertensive urgency I16.0 Alcohol abuse F10.10 Smoking addiction F17.200 Dyslipidemia E78.5 Atherosclerotic heart disease of [place] coronary artery with other forms of angina pectoris I25.118
--- NOTE | 2022-03-11 12:32 | P.PN_ITS ---
Subjective Subjective: Patient is feeling okay. Denies any chest pain or shortness of breath. Blood pressure is elevated still. No fever or chills. Medications: Medication Review Details: Current Medications Acetaminophen (Acetaminophen 325 Mg Tablet) 650 mg PO Q6H PRN PRN Reason: MILD PAIN Last Admin: 03/11/22 07:38 Dose: 650 mg Documented by: Al Hydrox/Mg Hydrox/Simethicone (Fnbd-Fao-Barnlokaf-Alice 30 Ml Udc) 30 ml PO Q15M PRN PRN Reason: INDIGESTION Amlodipine Besylate (Amlodipine 5 Mg Tablet) 5 mg PO DAILY [facility] [place] Last Admin: 03/11/22 09:23 Dose: 5 mg Documented by: Hydralazine HCl (Hydralazine 25 Mg Tablet) 50 mg PO TID [facility] [place] Last Admin: 03/11/22 09:22 Dose: 50 mg Documented by: Isosorbide Mononitrate (Isosorbide Mononitrate Er 60 Mg Tablet) 60 mg PO DAILY [facility] [place] Last Admin: 03/11/22 09:23 Dose: 60 mg Documented by: Lisinopril (Lisinopril 20 Mg Tablet) 40 mg PO DAILY [facility] [place] Last Admin: 03/11/22 09:22 Dose: 40 mg Documented by: Magnesium Hydroxide (Magnesium Hydroxide 30 Ml Udc) 30 ml PO DAILY PRN PRN Reason: CONSTIPATION Morphine Sulfate (Morphine 4 Mg/Ml Sdv 1 Ml) 2 mg IVP Q4H PRN PRN Reason: SEVERE PAIN Last Admin: 03/10/22 20:37 Dose: 2 mg Documented by: Ondansetron HCl (Ondansetron 2 Mg/Ml Sdv 2 Ml) 4 mg IVP Q8H PRN PRN Reason: vomiting, or N/V if npo Pantoprazole Sodium (Pantoprazole Dr 40 Mg Tablet) 40 mg PO BID [facility] [place] Last Admin: 03/11/22 09:23 Dose: 40 mg Documented by: Vitals/I&O/Wt Last Vital Signs Temp 97.6 F 03/11/22 11:07 Pulse 62 03/11/22 11:07 Resp 21 H 03/11/22 04:00 BP 141/98 03/11/22 11:07 Pulse Ox 94 03/11/22 11:07 03/10/22 03/11/22 03/11/22 22:59 06:59 14:59 Intake Total 1596 / 2436 354 / 354 Balance 1596 / 2261 354 / 354 Physical Exam Narrative: GENERAL: The patient is alert and oriented times three. Not in any acute distress. HEENT: No significant pallor, icterus or lymphadenopathy.Oral cavity: There are no mucous membrane lesions. NECK: Trachea appears to be central. No masses noted. No JVD or thyromegaly appreciated. RESPIRATORY: Chest is symmetrical. No intercostals muscle retraction or any accessory muscle activation. There is no chest wall tenderness. Breath sounds are heard bilaterally. No rales or rhonchi heard. No evidence of any consolidation. BREASTS: Deferred. HEART: The heart sounds are normal. No S3 or S4. No significant murmurs. No pericardial rub ABDOMEN: No vessel pulsations or distention. No tenderness. No organomegaly appreciated. Bowel sounds are normally heard. : Deferred. RECTAL: Deferred. LYMPHATIC: No lymphadenopathy noted in the neck. EXTREMITIES: The right radial artery puncture site has no hematoma or bleeding. MUSCULOSKELETAL: No acute joint deformities or swelling SKIN: There are no significant rashes or ecchymosis NEUROPSYCHIATRIC: The patient is alert and oriented x3. Appears to be in a good mood. No tremors or rigidity noted. Data : 03/10/22 02:50 03/11/22 03:34 Other Labs: Laboratory Last Values WBC 8.3 10^3/uL (4.0-10.0) 03/10/22 02:50 RBC 4.75 10^6/uL (4.1-5.3) 03/10/22 02:50 Hgb 15.2 g/dL (11.7-16.6) 03/10/22 02:50 Hct 44.2 % (42.0-52.0) 03/10/22 02:50 MCV 93.1 fl (80-94) 03/10/22 02:50 MCH 32.0 pg (28.0-34.0) 03/10/22 02:50 MCHC 34.4 g/dL (30.0-36.0) 03/10/22 02:50 RDW 13.7 % (12.1-15.1) 03/10/22 02:50 Plt Count 146 10^3/cmm (130-400) 03/10/22 02:50 MPV 11.6 fL (7.4-10.4) H 03/10/22 02:50 Neut % (Auto) 42.5 % 03/10/22 02:50 Lymph % (Auto) 44.5 % 03/10/22 02:50 [place] % (Auto) 9.6 % 03/10/22 02:50 Eos % (Auto) 2.5 % 03/10/22 02:50 Baso % (Auto) 0.7 % 03/10/22 02:50 Neut # (Auto) 3.54 10^3/uL (1.8-7.7) 03/10/22 02:50 Lymph # (Auto) 3.7 10^3/uL (0.8-4.8) 03/10/22 02:50 [place] # (Auto) 0.8 10^3/uL (0.2-0.9) 03/10/22 02:50 Eos # (Auto) 0.2 10^3/uL (0.0-0.8) 03/10/22 02:50 Baso # (Auto) 0.1 10^3/uL (0.0-0.1) 03/10/22 02:50 Nucleated RBC % (auto) 0 % 03/10/22 02:50 Nucleated RBCs # 0.0 /100WBC 03/10/22 02:50 Sodium 138 mmol/L (136-145) 03/11/22 03:34 Potassium 4.2 mmol/L (3.5-5.1) 03/11/22 03:34 Chloride 103 mmol/L (98-107) 03/11/22 03:34 Carbon Dioxide 24 mmol/L (22-29) 03/11/22 03:34 Anion Gap 15.2 (5-19) 03/11/22 03:34 BUN 13 mg/dL (6-20) 03/11/22 03:34 Creatinine 0.8 mg/dL (0.7-1.2) 03/11/22 03:34 GFR Calculation 102.3 mL/min (90-130) 03/11/22 03:34 Glucose 90 mg/dL (65-115) 03/11/22 03:34 Estimat Average Glucose 105 03/08/22 13:10 Hemoglobin A1c 5.3 % (4.0-6.0) 03/08/22 13:10 Calculated Osmolality 286 mOsm/kg (285-295) 03/11/22 03:34 Calcium 8.8 mg/dL (8.5-10.5) 03/11/22 03:34 Phosphorus 4.7 mg/dL (2.5-4.5) H 03/09/22 04:55 Magnesium 2.1 mg/dL (1.7-2.3) 03/10/22 02:50 Total Bilirubin 0.5 mg/dL (0.15-1.2) 03/09/22 04:55 AST 42 U/L (0-40) H 03/09/22 04:55 ALT 57 U/L (0-41) H 03/09/22 04:55 Alkaline Phosphatase 84 IU/L (40-130) 03/09/22 04:55 Troponin T Baseline 6 ng/L (0-15) 03/08/22 13:10 Troponin T 120 Minute 6.45 ng/L (0-15) 03/08/22 14:58 Delta Troponin T 0.45 ABS# (0-10) 03/08/22 14:58 Troponin T Hi Sens 6Hr 7.59 ng/L (0-15) 03/08/22 19:56 Troponin T Hi Sens 6Hr Delta 1.59 ng/L (0-12) 03/08/22 19:56 NT-Pro-B Natriuret Pep 106 pg/mL (0-125) 03/08/22 13:10 Total Protein 6.4 g/dL (6.6-8.7) L 03/09/22 04:55 Albumin 3.8 g/dL (3.5-5.2) 03/09/22 04:55 Globulin 2.6 g/dL (1.3-4.6) 03/09/22 04:55 Triglycerides 137 mg/dL (0-150) 03/08/22 13:10 Cholesterol 301 mg/dL (0-200) H 03/08/22 13:10 LDL Cholesterol, Calc 231 mg/dL (50-129) H 03/08/22 13:10 HDL Cholesterol 43 mg/dL (60-100) L 03/08/22 13:10 LDL/HDL Ratio 5.37 RATIO (0.00-3.22) H 03/08/22 13:10 Cholesterol/HDL Ratio 7.00 mg/dL (1.0-5.00) H 03/08/22 13:10 Lipase 13 U/L (13-60) 03/09/22 05:05 Procalcitonin 0.06 ng/mL (0-0.5) 03/08/22 13:10 TSH 1.10 uIU/mL (0.27-4.20) 03/08/22 13:10 Urine Color Yellow (Yellow) 03/10/22 08:19 Urine Appearance Clear (CLEAR) 03/10/22 08:19 Urine pH 7 (5-7) 03/10/22 08:19 Ur Specific [place] 1.005 (1.005-1.030) 03/10/22 08:19 Urine Protein Neg (Negative) 03/10/22 08:19 Urine Glucose (UA) Norm (Normal) 03/10/22 08:19 Urine Ketones Negative (Negative) 03/10/22 08:19 Urine Blood Neg (Negative) 03/10/22 08:19 Urine Nitrate Negative (Negative) 03/10/22 08:19 Urine Bilirubin Neg (Negative) 03/10/22 08:19 Urine Urobilinogen Norm mg/dL (Negative) 03/10/22 08:19 Ur Leukocyte Esterase Negative (Negative) 03/10/22 08:19 Urine Opiates Screen Positive ng/mL (Negative) H 03/10/22 08:19 Ur Barbiturates Screen Negative ng/mL (Negative) 03/10/22 08:19 Ur Phencyclidine Scrn Negative ng/mL (Negative) 03/10/22 08:19 Ur Amphetamines Screen Negative ng/mL (Negative) 03/10/22 08:19 U Benzodiazepines Scrn Negative ng/mL (Negative) 03/10/22 08:19 Urine Cocaine Screen Negative ng/mL (Negative) 03/10/22 08:19 U Marijuana (THC) Screen Negative ng/mL (Negative) 03/10/22 08:19 Hepatitis A IgM Ab Non-reactive (Nonreactive) 03/10/22 18:15 Hep Bs Antigen Non-reactive (Nonreactive) 03/10/22 18:15 Hep Bs Antibody 3.5 (11.5-1000) L 03/10/22 18:15 Hep B Core Total Ab Non-reactive (Nonreactive) 03/10/22 18:15 Hepatitis C Antibody Non-reactive (Nonreactive) 03/10/22 18:15 A&P Assessment and plan (1) Chest pain: Most likely noncardiac. Small vessel disease, left ventricular diastolic dysfunction, also could be contributing factors. Currently the chest pain is significantly improved Status: Resolved (2) Hypertensive urgency: The patient's diastolic blood pressure runs in the 110s to 120s. I may add amlodipine 5 mg p.o. now and daily along with isosorbide mononitrate 30 mg p.o. now and daily to the current regimen. His blood pressure needs to be closely monitored on telemetry. The blood pressure seems to be getting under control at this time. May continue on the current medications. Status: Resolved (3) Alcohol abuse: Patient seems to be doing okay without alcohol so far. He is planning to quit Status: Acute (4) Smoking addiction: Patient is strongly advised to quit smoking. Cardiovascular implications were discussed. Status: Acute (5) Dyslipidemia: Consider starting the patient on a statin drug, when the liver enzymes are trending downwards Status: Acute (6) Atherosclerotic heart disease of [place] coronary artery with other forms of angina pectoris: The angiogram findings were discussed with the patient. We will try to optimize his medical treatment. He is strongly advised to quit smoking and drinking. Status: Resolved Plan The other problems are Erythrocytosis-possibly from smoking COPD GERD Elevated liver enzymes Once the blood pressure gets under control, may be discharged home from a cardiac standpoint. 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
== END 2022-03-11 13:30 | disposition home or self-care (01) | DRG 287 ==
LOC: ER 17:03 → MEDSURG 17:07 → CSU 03-10 07:34 → MEDSURG 03-10 16:24
PROVIDERS: Internal Medicine Cardiovascular Disease; Admitting Provider Internal Medicine; Emergency Provider Family Medicine; PCP Nurse Practitioner Family; Visit Provider Internal Medicine
PROC: 4A023N7 Measurement of Cardiac Sampling and Pressure, Left Heart, Percutaneous Approach (ICD-10-PCS; principal; 2022-03-10 06:00)
DX: I16.0 Hypertensive urgency (principal); F10.239 Alcohol dependence with withdrawal, unspecified; I25.110 Atherosclerotic heart disease of native coronary artery with unstable angina pectoris; Y90.9 Presence of alcohol in blood, level not specified; I10 Essential (primary) hypertension; K21.9 Gastro-esophageal reflux disease without esophagitis; F17.210 Nicotine dependence, cigarettes, uncomplicated; E78.5 Hyperlipidemia, unspecified; J44.9 Chronic obstructive pulmonary disease, unspecified; D75.1 Secondary polycythemia; Z79.51 Long term (current) use of inhaled steroids; Z91.120 Patient's intentional underdosing of medication regimen due to financial hardship; Z82.49 Family history of ischemic heart disease and other diseases of the circulatory system
CPT/HCPCS: 36415; 71045; 71275; 78452; 80048; 80053; 80061; 80306; 81003; 83036; 83690; 83735; 83880; 84100; 84145; 84443; 84484; 85025; 86705; 86706; 86709; 86803; 87340; 93005; 93017; 93306; 93452; 93458; 94664; 96360; 96365; 96372; 96375; 99152; 99153; 99291; A9500; C1769; C1887; C1894; C9113; J0360; J1644; J1650; J2250; J2270; J2785; J3010; J3490; J7030; Q0163; Q9967

== ENCOUNTER → 2022-03-29 14:17 | Outpatient (BNVA) | payer MEDICAID, SELFPAY | PROVIDERS: PCP Nurse Practitioner Family; Visit Provider Nurse Practitioner Family | DX: I10 Essential (primary) hypertension (principal) | CPT/HCPCS: 36415; 80048 ==